=== PATIENT | female | born 1970 | race Caucasian/White ===

== ENCOUNTER 2019-04-08 19:35 | Emergency (ER) | payer MEDICARE, MEDICAID ==
[~2019-04-08] VITALS: Ht 154.9 cm; Wt 99.8 kg
[2019-04-08] MEDS ORDERED: OLANZapine 10 MG TAB PO ONE (22:15)
[2019-04-08] MEDS ORDERED: LOSARTAN 25 MG TAB PO ONE (22:15)
[2019-04-08] MEDS ORDERED: PRAMIPEXOLE (MIRAPEX) 0.125 MG TAB PO ONE (22:15)
[2019-04-08] MEDS ORDERED: metFORMIN (GLUCOPHAGE) 500 MG TAB PO ONE (22:15)
[2019-04-08] MEDS ORDERED: raNITIdine SYRUP 150 MG/10 ML UDC GT ONE (22:16)
[2019-04-09 03:46] VITALS: BP 159/97
--- NOTE | 2019-04-10 07:05 | ECGEPIP ---
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
== END 2019-04-09 03:51 | disposition short-term general hospital (02) ==
LOC: M ED 19:35
DX: F29 Unspecified psychosis not due to a substance or known physiological condition (principal); F32.9 Major depressive disorder, single episode, unspecified; Z91.018 Allergy to other foods; E78.00 Pure hypercholesterolemia, unspecified; G47.30 Sleep apnea, unspecified; H90.5 Unspecified sensorineural hearing loss; E28.2 Polycystic ovarian syndrome; E11.9 Type 2 diabetes mellitus without complications; R45.851 Suicidal ideations; R45.850 Homicidal ideations; Z79.899 Other long term (current) drug therapy

== ENCOUNTER 2019-04-20 12:16 | Inpatient (IN) | payer MEDICARE, MEDICAID ==
[~2019-04-20] VITALS: Ht 154.9 cm; Wt 109.0 kg
[2019-04-20 13:06] LABS: HEMATOCRIT 37.5 % (36.0-47.0); HEMOGLOBIN 12.8 g/dl (12.0-15.5); MEAN CORPUSCULAR HGB CONC 34.1 g/dl (32.0-36.5); MEAN CORPUSCULAR VOLUME 90.8 fl (80.0-96.0); PLATELET COUNT, AUTOMATED 250 10^3/uL (150-450); RED BLOOD COUNT 4.13 10^6/uL (4.00-5.40); WHITE BLOOD COUNT 8.2 10^3/uL (4.0-10.0)
[2019-04-20 13:28] LABS: AMPHETAMINES LEVEL URINE NEGATIVE (NEGATIVE); BARBITURATES URINE NEGATIVE (NEGATIVE); BENZODIAZEPINES URINE NEGATIVE (NEGATIVE); CANNABINOIDS URINE NEGATIVE (NEGATIVE); COCAINE METABOLITE URINE NEGATIVE (NEGATIVE); METHADONE URINE NEGATIVE (NEGATIVE); OPIATES URINE NEGATIVE (NEGATIVE); PHENCYCLIDINE URINE NEGATIVE (NEGATIVE)
[2019-04-20 13:34] LABS: HCG, SERUM QUALITATIVE NEGATIVE (NEGATIVE)
[2019-04-20] MEDS ORDERED: OLAN15TA PO (13:36)
[2019-04-20] MEDS ORDERED: METF500T13 PO (13:36)
[2019-04-20] MEDS ORDERED: PRAMIPEXOLE (13:36)
[2019-04-20] MEDS ORDERED: RANI150T14 PO (13:36)
[2019-04-20] MEDS ORDERED: ALL10TAB29 PO (13:36)
[2019-04-20] MEDS ORDERED: SERT-155 PO (13:36)
[2019-04-20] MEDS ORDERED: LOSA25TA14 PO (13:36)
[2019-04-20 13:47] LABS: ACETAMINOPHEN LEVEL < 2.0 UG/ML (10.0-30.0); ALBUMIN 3.9 GM/DL (3.2-5.2); ALT/SGPT 69 U/L (12-78); BILIRUBIN,DIRECT < 0.1 MG/DL (0.0-0.2); BILIRUBIN,TOTAL 0.3 MG/DL (0.2-1.0); BLOOD UREA NITROGEN 12 MG/DL (7-18); CALCIUM LEVEL 9.5 MG/DL (8.5-10.1); CARBON DIOXIDE LEVEL 27 MEQ/L (21-32); CHLORIDE LEVEL 104 MEQ/L (98-107); CREATININE FOR GFR 0.91 MG/DL (0.55-1.30); ETHYL ALCOHOL (ETHANOL) < 0.003 % (0.000-0.010); GLOMERULAR FILTRATION RATE > 60.0 (>58); GLUCOSE, FASTING 179 MG/DL (70-100); POTASSIUM SERUM 3.8 MEQ/L (3.5-5.1); SALICYLATE LEVEL < 1.7 MG/DL (5.0-30.0); SODIUM LEVEL 141 MEQ/L (136-145); TOTAL PROTEIN 7.6 GM/DL (6.4-8.2)
[2019-04-20] MEDS ORDERED: HALOPERIDOL 5 MG TAB PO PRN (16:15)
[2019-04-20] MEDS ORDERED: MOM 30ML SUSPENSION UDC PO PRN (16:15)
[2019-04-20] MEDS ORDERED: MIRA0.254 PO (17:03)
[2019-04-20] MEDS ORDERED: TRAZ-252 PO (17:03)
[2019-04-20 18:27] VITALS: BP 168/88
[2019-04-20] MEDS: ACETAMINOPHEN TAB 650MG DOSE (2X325MG) PO PRN (20:52)
[2019-04-20] MEDS: traZODone 50 MG TAB PO PRN (20:52)
[2019-04-21 06:30] VITALS: BP 165/90
[2019-04-21] MEDS: NICOTINE 7 MG/24 HR TRANSDERMAL TD SCH (08:23)
[2019-04-21] MEDS: SERTRALINE HCL 50 MG TAB PO SCH (14:45)
[2019-04-21] MEDS: LOSARTAN 25 MG TAB PO SCH (15:26)
[2019-04-21 16:15] VITALS: BP 160/92
[2019-04-21] MEDS ORDERED: SENOKOT S TAB PO PRN (21:00)
[2019-04-21] MEDS: PRAMIPEXOLE (MIRAPEX) 0.125 MG TAB PO SCH (21:22)
[2019-04-21] MEDS: CETIRIZINE (ZyrTEC) 10 MG TAB PO SCH (21:24)
[2019-04-21] MEDS: amLODIPine 5 MG TAB PO SCH (21:24)
[2019-04-21] MEDS: OLANZapine 5 MG TAB PO SCH (21:24)
[2019-04-21] MEDS: metFORMIN (GLUCOPHAGE) 1000 MG TABLET PO SCH (21:24)
--- NOTE | 2019-04-21 22:23 | HPE ---
DATE OF ADMISSION: 04/21/2019 CHIEF COMPLAINT: Unspecified psychosis. HISTORY OF PRESENT ILLNESS: This is a 49-year-old female with a history of hypertension, diabetes, hypercholesterolemia, chronic constipation, prior history of tonsillectomy, and right ankle injury with no prior followup, admitted to inpatient mental health unit for unspecified psychosis. Hospital service was consulted to manage chronic medical problems. Patient complains of right ankle pain when she ambulates. She denies any current falls. Denies fevers, chills. Denies any erythema at the site. No recent trauma. Diabetes had been previously treated with metformin. She currently denies any polyphagia, polyuria, weight loss. Despite pressure 148/160, patient denies any headaches, changes in vision, chest pain, pressure, tightens, palpitations, lightheadedness, or dizziness. She does complain of constipation but denies any nausea, vomiting, or abdominal pain. PAST MEDICAL HISTORY: 1. Hypertension. 2. Diabetes. 3. Hypercholesterolemia. 4. Morbid obesity, body mass index (BMI) of 45. 5. Metabolic syndrome. 6. Right ankle injury. 7. Psychosis. 8. Allergic rhinitis. PAST SURGICAL HISTORY: Tonsillectomy at the age of 89 years old. HOSPITAL MEDICATIONS: Zyrtec, metformin, Zyprexa, Mirapex, Cozaar, Zoloft, nicotine patch, Ativan, Haldol, trazodone, acetaminophen, milk of magnesia, Mylanta. ALLERGIES: Grass, pollen, and Coca Cola, causing rash. FAMILY HISTORY: Mother with hypertension, father with coronary artery disease. 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 Currently unemployed. Smokes one to two cigarettes a day. Has alcohol binges with her friends. Usually drinks five to six orange beer and lockhart colada but has not had any recently. Sometimes drinks five glasses of wine at one point. Denies any recreational drug use. REVIEW OF SYSTEMS: Per history of present illness (HPI). A 12-point system otherwise negative. PHYSICAL EXAMINATION: VITAL SIGNS: Temperature 98.4, pulse 90, respiratory rate 18, blood pressure 160/92, 98% on room air. GENERAL: Patient looks her stated age. She appears disheveled. No jugular venous distention (JVD) or thyromegaly. Pupils round, reactive. Extraocular muscles are intact. Anicteric sclerae. No jaundice. No cervical lymphadenopathy or thyromegaly. Moist mucous membranes. LUNGS: Clear to auscultation. No wheezes, rales, or rhonchi. ABDOMEN: Obese, soft, nontender, nondistended. Positive bowel sounds times four quadrants. No rebound, guarding, or hepatosplenomegaly. EXTREMITIES: Patient has no pitting edema, cyanosis, clubbing in the bilateral lower extremities. She has full flexion and extension, lateral and external rotation of bilateral ankles. LABORATORY DATA: On April 20, CBC, CMP, TSH, and HCG have been reviewed. ASSESSMENT AND PLAN: This is a 49-year-old female with a history of hypertension, diabetes, metabolic syndrome, hypercholesterolemia, chronic constipation, right ankle injury. IMPRESSION: 1. Unspecified psychosis. Currently admitted to inpatient mental health unit. Managed by primary team, psychiatrist. 2. Right ankle pain. Will obtain x-ray of the right ankle. There is no obvious swelling or tenderness on examination and no gait abnormalities. 3. Hypertension. Patient has been resumed on her home dose of losartan due to uncontrolled at 140-160. Norvasc has been added, 5 mg at bedtime. 4. Type 2 diabetes. Currently on metformin. Will check A1c. Consistent-carbohydrate diet. 5. Active tobacco smoking. Currently on nicotine patch. Tobacco cessation counseling has bene provided. 6. Depression, on chronic Zoloft. 7. Allergic rhinitis, on Zyrtec. 8. Chronic constipation, on bowel regimen. MTDD
[2019-04-22 06:41] VITALS: BP 129/72
[2019-04-22 06:57] LABS: HEMOGLOBIN A1c 6.2 %
--- NOTE | 2019-04-22 07:30 | MHHPE ---
DATE OF ADMISSION: 04/20/2019 CHIEF COMPLAINT: Feels stressed. SUBJECTIVE: She is 49 years old. She is admitted here after being discharged from [facility] just recently, time frame is unclear, she says that this was about a week or so ago, and she thinks she stayed there for about a week, I do not have access to those records, and that she was further disturbed when she was told about her diagnosis when she was there, says was told that she has schizophrenia, and says has been hearing voices, and some of them have been asking her to kill herself, says there is more than one voice and sometimes they talk to each other about her. She says she is further disturbed as she has a neighbor where she stays in [place], she says he is a sex offender, and that he has been disturbing her, again details unclear. She says she recently made a phone call to someone, and that has led her boyfriend in [place], [place] to fdc. Says he is mad at her now. She also spoke of not being treated well at [facility], and for being admonished for hugging another patient there, and for taking God's name. Says her mother lives in [place], and that they are in touch with each other, but she is not sure if her mother knows she is here. Says has been taking her medicines, and gets them regularly. According to the chart, is on olanzapine at 15 mg at night, Zoloft 50 mg daily, trazodone 150 mg at bedtime, this is in addition to ranitidine, cetirizine, losartan and metformin, Mirapex. Says has felt suicidal, and that she feels disturbed by this, she took pains to point out that she does not want to go to [facility]. Says attends [facility]. PAST PSYCHIATRIC HISTORY: As indicated above. Has had previous hospitalizations, including here, and most recently she was at [facility] there. SUBSTANCE ABUSE HISTORY: None significantly. PAST MEDICAL HISTORY: Says has diabetes and hypertension, is treated for that. MEDICATIONS: Please see above. SOCIAL HISTORY: Stays in [place], on her own, says has a mother in [place], other details are unknown at present. She did indicate she has a boyfriend in [place], [place], and is upset that he is in fdc. Again, details unknown. MENTAL STATUS EXAM: She is fairly neat. She is cooperative. She is overweight. She is seen in the presence of staff. She is not agitated, displays no psychomotor retardation. Affect is restricted in range, she is somewhat tangential at times, and generally directable. Has suicidal thoughts, vague on plans. Does not appear internally preoccupied at present. Denies any thoughts of harming anyone else at present either. Her cognition is grossly intact. She is alert and oriented. Judgment and insight are compromised. ASSESSMENT: Schizophrenia. Recent hospitalization. Poor social support. Has auditory hallucinations, command hallucinations, and also seems to have some difficulties in her thought processes, tangential at times. PLAN: She is admitted to the inpatient psychiatry unit, placed on relevant precautions, will look at obtaining collateral information, including past records. She will be resumed on her medicines, and changes will be made to the regimen should it be necessary. She will be involved in individual, group and milieu therapy. She will see the department medicine for consult if necessary. She will be discharged with followup once she is stable. I anticipate a 5 to 7 days stay. The assessment took 30 minutes. VITAL SIGNS: Blood pressure 165/90, pulse 88, temperature 98. LABORATORY VALUES, INVESTIGATIONS: Complete blood count within normal limits. Metabolic profile essentially within normal limits except for AST at 44, glucose 179. Toxicology is essentially negative.
[2019-04-22] MEDS: metFORMIN (GLUCOPHAGE) 1000 MG TABLET PO SCH ×2 (08:24→20:21)
[2019-04-22] MEDS: SERTRALINE HCL 50 MG TAB PO SCH (08:25)
[2019-04-22] MEDS: PRAMIPEXOLE (MIRAPEX) 0.125 MG TAB PO SCH ×2 (08:25→20:21)
[2019-04-22] MEDS: LOSARTAN 25 MG TAB PO SCH (08:25)
[2019-04-22] MEDS: NICOTINE 7 MG/24 HR TRANSDERMAL TD SCH (08:26)
--- NOTE | 2019-04-22 10:03 | REP ---
RIGHT ANKLE, FOUR VIEWS: Four views right ankle performed. No fracture or dislocation is seen. Ankle mortise is anatomic. There is mild soft tissue swelling. There is posterior and inferior calcaneal spurring. IMPRESSION: No fracture or dislocation. Calcaneal spurring. Mild soft tissue swelling. Electronically Signed by Fredi John MD 04/22/2019 05:58 P
[2019-04-22 16:03] VITALS: BP 132/66
--- NOTE | 2019-04-22 16:32 | MHIPN ---
DATE: 04/22/2019 CHIEF COMPLAINT: Feels upset. SUBJECTIVE: Is seen for followup in the presence of staff. Says has been upset, angry, and concerned about apparently a patient being intrusive on her, also suggested has had not much sleep. Appetite has been fair. MENTAL STATUS EXAMINATION: Fair hygiene. Cooperative. Mildly irritable. At times crying, reconstitutes herself, congruent affect. Denies any active suicidal thoughts or intents. Does not appear to be internally preoccupied, but says hears voices currently. Has possible delusions. Judgment and insight are compromised. ASSESSMENT: 1. Schizophrenia. PLAN: Continue olanzapine 15 mg at night, sertraline 50 mg a day. Encouraged to participate in activities on the unit. We will look at obtaining collateral information as well. VITAL SIGNS: Blood pressure 129/72, pulse 77, temperature 97.6. She will be seeing the psychiatrist assigned to her and the treatment team tomorrow.
[2019-04-22] MEDS: traZODone 50 MG TAB PO PRN (20:20)
[2019-04-22] MEDS: CETIRIZINE (ZyrTEC) 10 MG TAB PO SCH (20:20)
[2019-04-22] MEDS: OLANZapine 5 MG TAB PO SCH (20:20)
[2019-04-22] MEDS: FAMOTIDINE 20 MG TAB PO SCH (20:21)
[2019-04-22] MEDS: amLODIPine 5 MG TAB PO SCH (20:21)
[2019-04-23 06:24] VITALS: BP 154/77
[2019-04-23] MEDS: ACETAMINOPHEN TAB 650MG DOSE (2X325MG) PO PRN ×2 (07:14→20:16)
[2019-04-23] MEDS: LOSARTAN 25 MG TAB PO SCH (08:50)
[2019-04-23] MEDS: FAMOTIDINE 20 MG TAB PO SCH ×2 (08:50→20:15)
[2019-04-23] MEDS: SERTRALINE HCL 50 MG TAB PO SCH (08:50)
[2019-04-23] MEDS: metFORMIN (GLUCOPHAGE) 1000 MG TABLET PO SCH ×2 (08:50→20:14)
[2019-04-23] MEDS: PRAMIPEXOLE (MIRAPEX) 0.125 MG TAB PO SCH ×2 (08:51→20:14)
[2019-04-23] MEDS: NICOTINE 7 MG/24 HR TRANSDERMAL TD SCH (08:51)
--- NOTE | 2019-04-23 10:11 | MHIPNPDOC ---
[facility] Progress Note Progress Note DATE OF SERVICE: 04/23/19 HISTORY: She is 49 years old. She is admitted here after being discharged from [facility] just recently, time frame is unclear, she says that this w as about a week or so ago, and she thinks she stayed there for about a week, I do not have access to those records, and that she was further disturbed when she was told about her diagnosis when she was there, says was told that she has schizophrenia, and says has been hearing voices, and some of them have been asking her to kill herself, says there is more than one voice and sometimes they talk to each other about her. She says she is further disturbed as she has a neighbor where she stays in [place], she says he is a sex offender, and that he has been disturbing her, again details unclear. She says she recently made a phone call to someone, and that has led her boyfriend in [place], [place] to penitentiary. Says he is mad at her now. She also spoke of not being treated well at [facility], and for being admonished for hugging another patient there, and for taking God's name. Says her mother lives in [place], and that they are in touch with each other, but she is not sure if her mother knows she is he re. Says has been taking her medicines, and gets them regularly. According to the chart, is on olanzapine at 15 mg at night, Zoloft 50 mg daily, trazodone 150 mg at bedtime, this is in addition to ranitidine, cetirizine, losartan and metformin, Mirapex. Says has felt suicidal, and that she feels disturbed by this, she took pains to point out that she does not want to go to [facility]. Says attends [facility]. Is seen for followup in the presence of staff. Says has been upset, angry, and concerned about apparently a patient being intrusive on her, also suggested has had not much sleep. VITAL SIGNS: See below. NEW TEST RESULTS: see below. CURRENT MEDICATIONS: See below. MENTAL STATUS EXAMINATION: Pt currently sleeping, per staff up most of the night, and left sleeping. MSE per yesterday: General Appearance: unkempt, appears stated age, disheveled Build: overweight Demeanor: average Eye Contact: good Activity: anxious, mildly agitated Behavior: cooperative, agitated, restless Speech: rapid, normal volume Mood: anxious, depressed Mood "worse, bad" Affect: congruent, anxious, disorganized Thought Process: flight of ideas, loose associations, tangential Thought Content (Delusions): reports SI, AVH, denies HI, reports possible delusions regarding her neighbor being a sexual offender Thought Content (Other): ideas of reference, obsessional Thought Content (Aggressive): none reported Perception (Hallucinations): reports hearing multiple voices telling her to kill herself, and having nightmare-like visual hallucinations. Perception (Other): none reported Cognition (Impairment of): none reported Cognition(Intelligence Est.): average Oriented: Awake, Alert, Oriented times three Insight: poor Judgment: poor Psychosis: Denies DIAGNOSES: 1. Schizophrenia ASSESSMENT: Patient seen today asleep in her room and left sleeping as per staff pt was up manic, most of the night and needs the sleep currently to improve her tonio. Pt started depakote yesterday and appears to be tolerating. Will change it to just nightly dosing to less day time fatigue. Appears to be stabilizing the pt's mood. Per Yesterday's note "She reports being "pissed off" regarding another patient jessie was previously nice to her but upset her this morning. She reports she hasn't been able to sleep well here because she needs the radio playing or some noise and she hasn't had that here. She continues to discuss her concerns with her neighbor who she reports is a sex offender. She is upset because this kelsey is free and her brother is in senior care. She reports still hearing voices, and is frustrated with another patient here trying to cause a fight with her and following her around. When she began to elaborate on the voices, she got side-tracked and changed the subject a few times. She reports visual hallucinations as well, and states these are nightmares. I asked her if these occur while she is asleep or while she is awake and she reports both. She reports hearing multiple voices telling her to "kill myself." She doesn't notice a difference with the medications and doesn't feel like she has noticed any improvement. She reports the nightmares occur more lately because her brother is in senior care and she isn't able to talk to him or get a hold of him, and the holidays are coming up. She is also upset because she misses her kids, and she isn't allowed to see her grandchildren. She is worried her relationship with her boyfriend isn't going to last. She reports, "I'm the only one who treated him goodly." She reports she needs a brace because her ankle is bothering her." She reports SI/AVH, denies HI. She feels safe here. MANAGEMENT PLAN: change depakote to 1000mg qhs for morning sedation olanzapine 15 mg at night sertraline 50 mg a day. depakote to 1000mg qhs Invega 3mg bid TIME SPENT: 30 minutes. Vital Signs Vital Signs Date Time Temp Pulse Resp B/P (MAP) Pulse Ox O2 Delivery O2 Flow Rate FiO2 04/23/19 08:50 135/63 04/23/19 06:24 97.6 58 18 04/20/19 18:27 98 04/20/19 17:56 Room Air Current Medications Current Medications Medications (Trade) Dose Ordered Sig/Breezy Route PRN Reason Start Time Stop Time Status Last Admin Dose Admin Acetaminophen (Tylenol Tab) 650 mg Q6HP PRN PO HEADACHE or DISCOMFORT 04/20/19 16:15 04/23/19 07:14 Al Hydrox/Mg Hydrox/Simethicone (Mylanta) 30 ml Q4HP PRN PO HEARTBURN/INDIGESTION 04/20/19 16:15 Amlodipine Besylate (Norvasc) 5 mg QHS PO 04/21/19 21:00 04/22/19 20:21 Cetirizine HCl (ZyrTEC) 10 mg QHS PO 04/21/19 21:00 04/22/19 20:20 Famotidine (Pepcid) 20 mg BID PO 04/22/19 21:00 04/23/19 08:50 Haloperidol (Haldol) 2 mg Q4HP PRN PO ANXIETY/AGITATION 04/20/19 16:15 Home Med (Med Rec Complete!) ASDIRECTED XX 04/20/19 17:15 04/20/19 17:15 DC Lorazepam (Ativan) 2 mg Q4HP PRN PO ANXIETY/AGITATION 04/20/19 16:15 Losartan Potassium (Cozaar) 25 mg DAILY PO 04/21/19 15:00 04/23/19 08:50 Magnesium Hydroxide (Milk Of Magnesia) 30 ml DAILYPRN PRN PO CONSTIPATION 04/20/19 16:15 04/20/19 21:49 Metformin HCl (Glucophage) 1,000 mg BID PO 04/21/19 21:00 04/23/19 08:50 Nicotine (Nicoderm Cq 7 Mg) 1 patch DAILY TD 04/21/19 09:00 04/23/19 08:51 Olanzapine (ZyPREXA) 15 mg QHS PO 04/21/19 21:00 04/22/19 20:20 Pramipexole Dihydrochloride (Mirapex) 0.125 mg BID PO 04/21/19 21:00 04/23/19 08:51 Senna/Docusate Sodium (Senokot S) 2 tab BIDP PRN PO CONSTIPATION 04/21/19 21:00 04/22/19 20:23 Sertraline HCl (Zoloft) 50 mg DAILY PO 04/21/19 14:00 04/23/19 08:50 Trazodone HCl (Desyrel) 50 mg QHSP PRN PO INSOMNIA 04/20/19 16:15 04/22/19 20:20 Allergies Coded Allergies: Cola Drinks (Verified Allergy, Intermediate, CARRIES EPI-PEN, DARK COLA PRODUCTS, 05/16/07) ACE CARVALHO DO Apr 23, 2019 10:11 am
[2019-04-23] MEDS ORDERED: DIVALPROEX 500 MG TAB PO ONE (12:00)
[2019-04-23] MEDS ORDERED: PALIPERIDONE 3 MG ER TAB (INVEGA) PO ONE (12:00)
[2019-04-23 15:31] VITALS: BP 137/65
[2019-04-23] MEDS: PALIPERIDONE 3 MG ER TAB (INVEGA) PO SCH (20:14)
[2019-04-23] MEDS: OLANZapine 5 MG TAB PO SCH (20:14)
[2019-04-23] MEDS: amLODIPine 5 MG TAB PO SCH (20:15)
[2019-04-23] MEDS: CETIRIZINE (ZyrTEC) 10 MG TAB PO SCH (20:15)
[2019-04-23] MEDS: DIVALPROEX 500 MG TAB PO SCH (20:15)
[2019-04-23] MEDS: traZODone 50 MG TAB PO PRN (21:15)
[2019-04-23] MEDS: LORazepam 1 MG TAB PO PRN (23:01)
[2019-04-24 06:39] VITALS: BP 125/69
[2019-04-24] MEDS: NICOTINE 7 MG/24 HR TRANSDERMAL TD SCH (08:26)
[2019-04-24] MEDS: PALIPERIDONE 3 MG ER TAB (INVEGA) PO SCH ×2 (08:26→20:36)
[2019-04-24] MEDS: metFORMIN (GLUCOPHAGE) 1000 MG TABLET PO SCH ×2 (08:27→20:35)
[2019-04-24] MEDS: SERTRALINE HCL 50 MG TAB PO SCH (08:27)
[2019-04-24] MEDS: DIVALPROEX 500 MG TAB PO SCH ×2 (08:27→20:36)
[2019-04-24] MEDS: FAMOTIDINE 20 MG TAB PO SCH ×2 (08:27→20:35)
[2019-04-24] MEDS: LOSARTAN 25 MG TAB PO SCH (08:27)
[2019-04-24] MEDS: PRAMIPEXOLE (MIRAPEX) 0.125 MG TAB PO SCH ×2 (08:27→20:35)
[2019-04-24 16:03] VITALS: BP 157/70
[2019-04-24] MEDS: CETIRIZINE (ZyrTEC) 10 MG TAB PO SCH (20:35)
[2019-04-24] MEDS: amLODIPine 5 MG TAB PO SCH (20:36)
[2019-04-24] MEDS: OLANZapine 5 MG TAB PO SCH (20:36)
[2019-04-24] MEDS: traZODone 50 MG TAB PO PRN (21:05)
[2019-04-25 06:00] VITALS: BP 147/78
[2019-04-25] MEDS: FAMOTIDINE 20 MG TAB PO SCH ×2 (08:22→21:01)
[2019-04-25] MEDS: PALIPERIDONE 3 MG ER TAB (INVEGA) PO SCH ×2 (08:22→21:03)
[2019-04-25] MEDS: metFORMIN (GLUCOPHAGE) 1000 MG TABLET PO SCH ×2 (08:22→21:03)
[2019-04-25] MEDS: SERTRALINE HCL 50 MG TAB PO SCH (08:22)
[2019-04-25] MEDS: PRAMIPEXOLE (MIRAPEX) 0.125 MG TAB PO SCH ×2 (08:23→21:00)
[2019-04-25] MEDS: LOSARTAN 25 MG TAB PO SCH (08:23)
[2019-04-25] MEDS: NICOTINE 7 MG/24 HR TRANSDERMAL TD SCH (08:23)
[2019-04-25] MEDS: ACETAMINOPHEN TAB 650MG DOSE (2X325MG) PO PRN (14:21)
[2019-04-25] MEDS: MAALOX 30 ML SUSP *UDC PO PRN (15:30)
[2019-04-25] MEDS: LORazepam 1 MG TAB PO PRN (15:33)
[2019-04-25 15:36] VITALS: BP 144/86
[2019-04-25] MEDS: CETIRIZINE (ZyrTEC) 10 MG TAB PO SCH (21:00)
[2019-04-25] MEDS: OLANZapine 5 MG TAB PO SCH (21:01)
[2019-04-25] MEDS: amLODIPine 5 MG TAB PO SCH (21:02)
[2019-04-25] MEDS: DIVALPROEX 500 MG TAB PO SCH (21:03)
[2019-04-25] MEDS: traZODone 50 MG TAB PO PRN (21:51)
[2019-04-26 06:33] VITALS: BP 126/84
[2019-04-26] MEDS: SERTRALINE HCL 50 MG TAB PO SCH (08:41)
[2019-04-26] MEDS: metFORMIN (GLUCOPHAGE) 1000 MG TABLET PO SCH ×2 (08:41→20:33)
[2019-04-26] MEDS: PALIPERIDONE 3 MG ER TAB (INVEGA) PO SCH ×2 (08:41→20:33)
[2019-04-26] MEDS: FAMOTIDINE 20 MG TAB PO SCH ×2 (08:41→20:33)
[2019-04-26] MEDS: LOSARTAN 25 MG TAB PO SCH (08:42)
[2019-04-26] MEDS: NICOTINE 7 MG/24 HR TRANSDERMAL TD SCH (08:42)
[2019-04-26] MEDS: PRAMIPEXOLE (MIRAPEX) 0.125 MG TAB PO SCH ×2 (08:42→20:33)
--- NOTE | 2019-04-26 10:16 | MHIPNPDOC ---
[facility] Progress Note Progress Note DATE OF SERVICE: 04/26/19 HISTORY: She is 49 years old. She is admitted here after being discharged from [facility] just recently, time frame is unclear, she says that this w as about a week or so ago, and she thinks she stayed there for about a week, I do not have access to those records, and that she was further disturbed when she was told about her diagnosis when she was there, says was told that she has schizophrenia, and says has been hearing voices, and some of them have been asking her to kill herself, says there is more than one voice and sometimes they talk to each other about her. She says she is further disturbed as she has a neighbor where she stays in [place], she says he is a sex offender, and that he has been disturbing her, again details unclear. She says she recently made a phone call to someone, and that has led her boyfriend in [place], [place] to chcf. Says he is mad at her now. She also spoke of not being treated well at [facility], and for being admonished for hugging another patient there, and for taking God's name. Says her mother lives in [place], and that they are in touch with each other, but she is not sure if her mother knows she is he re. Says has been taking her medicines, and gets them regularly. According to the chart, is on olanzapine at 15 mg at night, Zoloft 50 mg daily, trazodone 150 mg at bedtime, this is in addition to ranitidine, cetirizine, losartan and metformin, Mirapex. Says has felt suicidal, and that she feels disturbed by this, she took pains to point out that she does not want to go to [facility]. Says attends [facility]. Is seen for followup in the presence of staff. Says has been upset, angry, and concerned about apparently a patient being intrusive on her, also suggested has had not much sleep. VITAL SIGNS: See below. NEW TEST RESULTS: see below. CURRENT MEDICATIONS: See below. MENTAL STATUS EXAMINATION: General Appearance: unkempt, appears stated age, disheveled Build: overweight Demeanor: mistrustful, figety Eye Contact: fair Activity: anxious, mildly agitated Behavior: cooperative, agitated, restless Speech: rapid, normal volume, spontaneous Mood: anxious, depressed Mood "not great" Affect: congruent, anxious, disorganized Thought Process: flight of ideas, loose associations, tangential, incoherent Thought Content (Delusions): reports SI, denies HI/AVH, paranoia, delusions (fears people are out to get her/kill her, people from [place]) Thought Content (Other): ideas of reference, obsessional, appears paranoid Thought Content (Aggressive): none reported Perception (Hallucinations): none reported Perception (Other): none reported Cognition (Impairment of): none reported Cognition(Intelligence Est.): average Oriented: Awake, Alert, Oriented times three Insight: poor Judgment: poor Psychosis: Denies DIAGNOSES: 1. Schizophrenia r/o schizoaffective d/o vs. Bipolar type 1 mre manic with psychosis ASSESSMENT: Patient seen today and reports she was feeling good until some kelsey on the floor said something to her he shouldn't have said. She is upset because she lost phone numbers for her friends and family and now she can't contact them. She is angry with this man on the floor who thinks she is in love with him but shes not. She is also upset because someone on the floor wrote a note to her saying she was cursed. She did give this note to the staff. She states "it hurt my feelings deeply." She has gone to some group sessions and sometimes finds them helpful, but was upset with one of the group leaders who she reports wouldn't let her talk and wouldn't answer her questions. She continues to discuss her frustrations with the male patient on the floor who makes her uncomfortable and wont leave her alone because he thinks they are . She reports she is no longer having any hallucinations and does feel like the m edications she is on are helping her. She denies any side effects from the medications. She still endorses SI, stating she always has these thoughts. She also reports a loss of appetite. She reports her sleep has been "good." She reports SI, denies HI/AVH. She reports she does not feel safe here, because she feels like someone is after her, stating "if they could do it to anil walker, they could do it to me too." She further explains fears of specific people, all of whom are in [place]. When I ask her again if she feels safe here knowing the people she is afraid of are not here, she said "yes." She continues to change the subject of conversation quite frequently, and is difficult to follow. MANAGEMENT PLAN: consider change to Invega 3mg bid for psychosis, Depakote 500mg bid for tonio 1. olanzapine 15 mg at night 2. sertraline 50 mg a day. TIME SPENT: 30 minutes. Vital Signs Vital Signs Date Time Temp Pulse Resp B/P (MAP) Pulse Ox O2 Delivery O2 Flow Rate FiO2 04/26/19 08:42 123/69 04/26/19 06:33 97.7 87 18 04/25/19 09:54 Room Air 04/20/19 18:27 98 Laboratory Data 24H Labs Laboratory Tests 2 04/26/19 06:10: Bedside Glucose (Misc Panel) 100 Current Medications Current Medications Medications (Trade) Dose Ordered Sig/Breezy Route PRN Reason Start Time Stop Time Status Last Admin Dose Admin Acetaminophen (Tylenol Tab) 650 mg Q6HP PRN PO HEADACHE or DISCOMFORT 04/20/19 16:15 04/25/19 14:21 Al Hydrox/Mg Hydrox/Simethicone (Mylanta) 30 ml Q4HP PRN PO HEARTBURN/INDIGESTION 04/20/19 16:15 04/25/19 15:30 Amlodipine Besylate (Norvasc) 5 mg QHS PO 04/21/19 21:00 04/25/19 21:02 Cetirizine HCl (ZyrTEC) 10 mg QHS PO 04/21/19 21:00 04/25/19 21:00 Divalproex Sodium (Depakote) 500 mg BID PO 04/23/19 21:00 04/24/19 09:46 DC 04/24/19 08:27 Divalproex Sodium (Depakote) 1,000 mg QHS PO 04/24/19 21:00 04/25/19 21:03 Famotidine (Pepcid) 20 mg BID PO 04/22/19 21:00 04/26/19 08:41 Haloperidol (Haldol) 2 mg Q4HP PRN PO ANXIETY/AGITATION 04/20/19 16:15 04/24/19 02:34 DC Haloperidol (Haldol) 2 mg Q4HP PRN PO ANXIETY/AGITATION 04/24/19 02:34 Home Med (Med Rec Complete!) ASDIRECTED XX 04/20/19 17:15 04/20/19 17:15 DC Lorazepam (Ativan) 2 mg Q4HP PRN PO ANXIETY/AGITATION 04/20/19 16:15 04/25/19 15:33 Losartan Potassium (Cozaar) 25 mg DAILY PO 04/21/19 15:00 04/26/19 08:42 Magnesium Hydroxide (Milk Of Magnesia) 30 ml DAILYPRN PRN PO CONSTIPATION 04/20/19 16:15 04/20/19 21:49 Metformin HCl (Glucophage) 1,000 mg BID PO 04/21/19 21:00 04/26/19 08:41 Nicotine (Nicoderm Cq 7 Mg) 1 patch DAILY TD 04/21/19 09:00 04/26/19 08:42 Olanzapine (ZyPREXA) 15 mg QHS PO 04/21/19 21:00 04/25/19 21:01 Paliperidone (Invega) 3 mg QAM PO 04/24/19 09:00 04/26/19 08:41 Paliperidone (Invega) 3 mg QHS PO 04/23/19 21:00 04/25/19 21:03 Pramipexole Dihydrochloride (Mirapex) 0.125 mg BID PO 04/21/19 21:00 04/26/19 08:42 Senna/Docusate Sodium (Senokot S) 2 tab BIDP PRN PO CONSTIPATION 04/21/19 21:00 04/22/19 20:23 Sertraline HCl (Zoloft) 50 mg DAILY PO 04/21/19 14:00 04/26/19 08:41 Trazodone HCl (Desyrel) 50 mg QHSP PRN PO INSOMNIA 04/20/19 16:15 04/25/19 21:51 Allergies Coded Allergies: Cola Drinks (Verified Allergy, Intermediate, CARRIES EPI-PEN, DARK COLA PRODUCTS, 05/16/07) ACE CARVALHO DO Apr 26, 2019 10:16
[2019-04-26 18:49] VITALS: BP 147/74
[2019-04-26] MEDS: OLANZapine 5 MG TAB PO SCH (20:33)
[2019-04-26] MEDS: amLODIPine 5 MG TAB PO SCH (20:33)
[2019-04-26] MEDS: CETIRIZINE (ZyrTEC) 10 MG TAB PO SCH (20:33)
[2019-04-26] MEDS: DIVALPROEX 500 MG TAB PO SCH (20:34)
[2019-04-26] MEDS: ACETAMINOPHEN TAB 650MG DOSE (2X325MG) PO PRN (20:34)
[2019-04-26] MEDS: traZODone 50 MG TAB PO PRN (20:38)
[2019-04-27] MEDS: HALOPERIDOL 2 MG TAB PO PRN (01:05)
[2019-04-27] MEDS: LORazepam 1 MG TAB PO PRN (03:01)
[2019-04-27 06:04] VITALS: BP 144/81
--- NOTE | 2019-04-27 09:59 | MHIPNPDOC ---
[facility] Progress Note Progress Note DATE OF SERVICE: 04/27/19 HISTORY: She is 49 years old. She is admitted here after being discharged from [facility] just recently, time frame is unclear, she says that this was about a week or so ago, and she thinks she stayed there for about a week, I do not have access to those records, and that she was further disturbed when she was told about her diagnosis when she was there, says was told that she has schizophrenia, and says has been hearing voices, and some of them have been asking her to kill herself, says there is more than one voice and sometimes they talk to each other about her. She says she is further disturbed as she has a neighbor where she stays in [place], she says he is a sex offender, and that he has been disturbing her, again details unclear. She says she recently made a phone call to someone, and that has led her boyfriend in [place], [place] to halfway. Says he is mad at her now. She also spoke of not being treated well at [facility], and for being admonished for hugging another patient there, and for taking God's name. Says her mother lives in [place], and that they are in touch with each other, but she is not sure if her mother knows she is h ere. Says has been taking her medicines, and gets them regularly. According to the chart, is on olanzapine at 15 mg at night, Zoloft 50 mg daily, trazodone 150 mg at bedtime, this is in addition to ranitidine, cetirizine, losartan and metformin, Mirapex. Says has felt suicidal, and that she feels disturbed by this, she took pains to point out that she does not want to go to [facility]. Says attends [facility]. Is seen for followup in the presence of staff. Says has been upset, angry, and concerned about apparently a patient being intrusive on her, also suggested has had not much sleep. VITAL SIGNS: See below. NEW TEST RESULTS: see below. CURRENT MEDICATIONS: See below. MENTAL STATUS EXAMINATION: General Appearance: unkempt, appears stated age, disheveled Build: overweight Demeanor: mistrustful, fidgety Eye Contact: fair Activity: anxious, mildly agitated Behavior: cooperative, agitated, restless Speech: rapid, normal volume, spontaneous Mood: anxious, depressed, very irritable Mood "annoyed" Affect: congruent, anxious, very irritable Thought Process: flight of ideas, loose associations, tangential, incoherent Thought Content (Delusions): reports SI, denies HI/AVH, paranoia, delusions (believes a woman is here "try to take my man... she's not taking my man!") Thought Content (Other): ideas of reference, obsessional, appears paranoid Thought Content (Aggressive): none reported Perception (Hallucinations): none reported Perception (Other): none reported Cognition (Impairment of): none reported Cognition(Intelligence Est.): average Oriented: Awake, Alert, Oriented times three Insight: poor Judgment: poor Psychosis: Denies DIAGNOSES: 1. Schizophrenia r/o schizoaffective d/o vs. Bipolar type 1 mre manic with psychosis ASSESSMENT: Patient seen today and she's not doing well b/c she didn't sleep here and that there's a pt here "Savi" that she doesn't like, fears wants to be her up and "is trying to take my man... she's not taking my man." States she unsure though if the pt "Savi" that's here is the one she thinks it is but looks like the one she knows. Pt encouraged to stay away from pt and "Savi" pt is unlikely to be one that she knows. Pt seems to have a problem with a different pt on the unit daily. Yesterday is was the pt "Artemio." She is paranoid, slightly agitated and irritable, labile, and continues to appear in an irritable manic state, having erotic delusions that a surgical scheduler is her boyfriend and plans to move to [place], [place] to be with him and state a music career. She has gone to some group sessions and sometimes finds them helpful. She is compliant on her medication does feel like the medications she is on are helping her and that she's tolerating them well. She denies any side effects from the medications. She denies SI today. She also reports a improved appetite. She denies SI/HI, denies HI/AVH. She reports she does not feel safe here, due to paranoid delusion involving pt "Savi" on the unit. She further explains fears of specific people, all of whom are in [place]. She continues to be tangential in speech and has poor insight and judgement. MANAGEMENT PLAN: increase Invega to 6mg bid for psychosis, Depakote level 1. olanzapine 15 mg at night 2. sertraline 50 mg a day. 3. invega 6mg bid 4. depakote 500mg bid TIME SPENT: 30 minutes. Vital Signs Vital Signs Date Time Temp Pulse Resp B/P (MAP) Pulse Ox O2 Delivery O2 Flow Rate FiO2 04/27/19 06:04 98.0 92 20 144/81 (102) 04/26/19 11:13 Room Air Laboratory Data 24H Labs Laboratory Tests 2 04/27/19 06:07: Bedside Glucose (Misc Panel) 98 Current Medications Current Medications Medications (Trade) Dose Ordered Sig/Breezy Route PRN Reason Start Time Stop Time Status Last Admin Dose Admin Acetaminophen (Tylenol Tab) 650 mg Q6HP PRN PO HEADACHE or DISCOMFORT 04/20/19 16:15 04/26/19 20:34 Al Hydrox/Mg Hydrox/Simethicone (Mylanta) 30 ml Q4HP PRN PO HEARTBURN/INDIGESTION 04/20/19 16:15 04/25/19 15:30 Amlodipine Besylate (Norvasc) 5 mg QHS PO 04/21/19 21:00 04/26/19 20:33 Cetirizine HCl (ZyrTEC) 10 mg QHS PO 04/21/19 21:00 04/26/19 20:33 Divalproex Sodium (Depakote) 500 mg BID PO 04/23/19 21:00 04/24/19 09:46 DC 04/24/19 08:27 Divalproex Sodium (Depakote) 1,000 mg QHS PO 04/24/19 21:00 04/26/19 20:34 Famotidine (Pepcid) 20 mg BID PO 04/22/19 21:00 04/26/19 20:33 Haloperidol (Haldol) 2 mg Q4HP PRN PO ANXIETY/AGITATION 04/20/19 16:15 04/24/19 02:34 DC Haloperidol (Haldol) 2 mg Q4HP PRN PO ANXIETY/AGITATION 04/24/19 02:34 04/27/19 01:05 Home Med (Med Rec Complete!) ASDIRECTED XX 04/20/19 17:15 04/20/19 17:15 DC Lorazepam (Ativan) 2 mg Q4HP PRN PO ANXIETY/AGITATION 04/20/19 16:15 04/27/19 03:01 Losartan Potassium (Cozaar) 25 mg DAILY PO 04/21/19 15:00 04/26/19 08:42 Magnesium Hydroxide (Milk Of Magnesia) 30 ml DAILYPRN PRN PO CONSTIPATION 04/20/19 16:15 04/20/19 21:49 Metformin HCl (Glucophage) 1,000 mg BID PO 04/21/19 21:00 04/26/19 20:33 Nicotine (Nicoderm Cq 7 Mg) 1 patch DAILY TD 04/21/19 09:00 04/26/19 08:42 Olanzapine (ZyPREXA) 15 mg QHS PO 04/21/19 21:00 04/26/19 20:33 Paliperidone (Invega) 3 mg QAM PO 04/24/19 09:00 04/26/19 08:41 Paliperidone (Invega) 3 mg QHS PO 04/23/19 21:00 04/26/19 20:33 Pramipexole Dihydrochloride (Mirapex) 0.125 mg BID PO 04/21/19 21:00 04/26/19 20:33 Senna/Docusate Sodium (Senokot S) 2 tab BIDP PRN PO CONSTIPATION 04/21/19 21:00 04/22/19 20:23 Sertraline HCl (Zoloft) 50 mg DAILY PO 04/21/19 14:00 04/26/19 08:41 Trazodone HCl (Desyrel) 50 mg QHSP PRN PO INSOMNIA 04/20/19 16:15 04/26/19 20:38 Allergies Coded Allergies: Cola Drinks (Verified Allergy, Intermediate, CARRIES EPI-PEN, DARK COLA PRODUCTS, 05/16/07) ACE CARVALHO DO Apr 27, 2019 9:59 am
[2019-04-27] MEDS ORDERED: PALIPERIDONE 3 MG ER TAB (INVEGA) PO ONE (10:00)
[2019-04-27] MEDS: PRAMIPEXOLE (MIRAPEX) 0.125 MG TAB PO SCH ×2 (10:15→20:52)
[2019-04-27] MEDS: SERTRALINE HCL 50 MG TAB PO SCH (10:15)
[2019-04-27] MEDS: FAMOTIDINE 20 MG TAB PO SCH ×2 (10:15→20:52)
[2019-04-27] MEDS: metFORMIN (GLUCOPHAGE) 1000 MG TABLET PO SCH ×2 (10:15→20:52)
[2019-04-27] MEDS: LOSARTAN 25 MG TAB PO SCH (10:15)
[2019-04-27] MEDS: NICOTINE 7 MG/24 HR TRANSDERMAL TD SCH (10:16)
[2019-04-27 18:27] VITALS: BP 124/57
[2019-04-27] MEDS: PALIPERIDONE 6 MG ER TAB (INVEGA) PO SCH (20:52)
[2019-04-27] MEDS: amLODIPine 5 MG TAB PO SCH (20:52)
[2019-04-27] MEDS: CETIRIZINE (ZyrTEC) 10 MG TAB PO SCH (20:52)
[2019-04-27] MEDS: traZODone 50 MG TAB PO PRN (20:52)
[2019-04-27] MEDS: OLANZapine 5 MG TAB PO SCH (20:52)
[2019-04-27] MEDS: DIVALPROEX 500 MG TAB PO SCH (20:52)
[2019-04-27] MEDS: ACETAMINOPHEN TAB 650MG DOSE (2X325MG) PO PRN (20:54)
[2019-04-28 06:39] VITALS: BP 137/83
[2019-04-28] MEDS: PALIPERIDONE 6 MG ER TAB (INVEGA) PO SCH ×2 (08:20→20:08)
[2019-04-28] MEDS: SERTRALINE HCL 50 MG TAB PO SCH (08:20)
[2019-04-28] MEDS: FAMOTIDINE 20 MG TAB PO SCH ×2 (08:20→20:08)
[2019-04-28] MEDS: PRAMIPEXOLE (MIRAPEX) 0.125 MG TAB PO SCH ×2 (08:21→20:08)
[2019-04-28] MEDS: metFORMIN (GLUCOPHAGE) 1000 MG TABLET PO SCH ×2 (08:21→20:08)
[2019-04-28] MEDS: LOSARTAN 25 MG TAB PO SCH (08:21)
[2019-04-28] MEDS: NICOTINE 7 MG/24 HR TRANSDERMAL TD SCH (09:49)
[2019-04-28] MEDS: HALOPERIDOL 2 MG TAB PO PRN ×2 (10:15→19:41)
[2019-04-28 15:58] VITALS: BP 129/63
[2019-04-28] MEDS: ACETAMINOPHEN TAB 650MG DOSE (2X325MG) PO PRN (19:41)
[2019-04-28] MEDS: DIVALPROEX 500 MG TAB PO SCH (20:07)
[2019-04-28] MEDS: traZODone 50 MG TAB PO PRN (20:07)
[2019-04-28] MEDS: amLODIPine 5 MG TAB PO SCH (20:07)
[2019-04-28] MEDS: OLANZapine 5 MG TAB PO SCH (20:07)
[2019-04-28] MEDS: CETIRIZINE (ZyrTEC) 10 MG TAB PO SCH (20:08)
[2019-04-29 06:34] VITALS: BP 127/79
[2019-04-29] MEDS: FAMOTIDINE 20 MG TAB PO SCH ×2 (08:25→19:48)
[2019-04-29] MEDS: NICOTINE 7 MG/24 HR TRANSDERMAL TD SCH (08:25)
[2019-04-29] MEDS: PRAMIPEXOLE (MIRAPEX) 0.125 MG TAB PO SCH ×2 (08:25→19:48)
[2019-04-29] MEDS: LOSARTAN 25 MG TAB PO SCH (08:26)
[2019-04-29] MEDS: metFORMIN (GLUCOPHAGE) 1000 MG TABLET PO SCH ×2 (08:26→19:48)
[2019-04-29] MEDS: PALIPERIDONE 6 MG ER TAB (INVEGA) PO SCH ×2 (08:26→19:48)
[2019-04-29] MEDS: SERTRALINE HCL 50 MG TAB PO SCH (08:26)
[2019-04-29 15:49] VITALS: BP 143/85
[2019-04-29] MEDS: MAALOX 30 ML SUSP *UDC PO PRN (17:02)
[2019-04-29] MEDS: CETIRIZINE (ZyrTEC) 10 MG TAB PO SCH (19:48)
[2019-04-29] MEDS: traZODone 50 MG TAB PO PRN (19:48)
[2019-04-29] MEDS: DIVALPROEX 500 MG TAB PO SCH (19:48)
[2019-04-29] MEDS: OLANZapine 5 MG TAB PO SCH (19:49)
[2019-04-29] MEDS: amLODIPine 5 MG TAB PO SCH (19:49)
[2019-04-29] MEDS: ACETAMINOPHEN TAB 650MG DOSE (2X325MG) PO PRN (19:50)
[2019-04-30 06:50] VITALS: BP 127/78
[2019-04-30] MEDS: PRAMIPEXOLE (MIRAPEX) 0.125 MG TAB PO SCH ×2 (08:22→20:39)
[2019-04-30] MEDS: PALIPERIDONE 6 MG ER TAB (INVEGA) PO SCH ×2 (08:22→20:39)
[2019-04-30] MEDS: FAMOTIDINE 20 MG TAB PO SCH ×2 (08:22→20:39)
[2019-04-30] MEDS: LOSARTAN 25 MG TAB PO SCH (08:24)
[2019-04-30] MEDS: NICOTINE 7 MG/24 HR TRANSDERMAL TD SCH (08:24)
[2019-04-30] MEDS: SERTRALINE HCL 50 MG TAB PO SCH (08:24)
[2019-04-30] MEDS: metFORMIN (GLUCOPHAGE) 1000 MG TABLET PO SCH ×2 (08:24→20:38)
[2019-04-30] MEDS: ACETAMINOPHEN TAB 650MG DOSE (2X325MG) PO PRN (08:25)
--- NOTE | 2019-04-30 10:16 | MHIPNPDOC ---
[facility] Progress Note Progress Note DATE OF SERVICE: 04/30/19 HISTORY: She is 49 years old. She is admitted here after being discharged from [facility] just recently, time frame is unclear, she says that this was about a week or so ago, and she thinks she stayed there for about a week, I do not have access to those records, and that she was further disturbed when she was told about her diagnosis when she was there, says was told that she has schizophrenia, and says has been hearing voices, and some of them have been asking her to kill herself, says there is more than one voice and sometimes they talk to each other about her. She says she is further disturbed as she has a neighbor where she stays in [place], she says he is a sex offender, and that he has been disturbing her, again details unclear. She says she recently made a phone call to someone, and that has led her boyfriend in [place], [place] to senior living. Says he is mad at her now. She also spoke of not being treated well at [facility], and for being admonished for hugging another patient there, and for taking God's name. Says her mother lives in [place], and that they are in touch with each other, but she is not sure if her mother knows she is h ere. Says has been taking her medicines, and gets them regularly. According to the chart, is on olanzapine at 15 mg at night, Zoloft 50 mg daily, trazodone 150 mg at bedtime, this is in addition to ranitidine, cetirizine, losartan and metformin, Mirapex. Says has felt suicidal, and that she feels disturbed by this, she took pains to point out that she does not want to go to [facility]. Says attends [facility]. Is seen for followup in the presence of staff. Says has been upset, angry, and concerned about apparently a patient being intrusive on her, also suggested has had not much sleep. VITAL SIGNS: See below. NEW TEST RESULTS: Depakote level is within therapeutic range. CURRENT MEDICATIONS: See below. MENTAL STATUS EXAMINATION: General Appearance: dressed in hospital clothing, appears stated age Build: overweight Demeanor: pleasant, cooperative Eye Contact: fair Activity: average Behavior: cooperative, pleasant Speech: non-pressured but rapid, normal volume, spontaneous Mood: mildly hypomanic, but improving. Affect: congruent, anxious, very irritable Thought Process: flight of ideas, loose associations, tangential, easily distracted off topic, mildly paranoid Thought Content (Delusions): reports SI, denies HI/AVH, delusions ( improving delusions of being a account maintenance representative). Thought Content (Other): Mildly grandiose Thought Content (Aggressive): none reported Perception (Hallucinations): none reported Perception (Other): none reported Cognition (Impairment of): none reported Cognition(Intelligence Est.): average Oriented: Awake, Alert, Oriented times three Insight: improving Judgment: improving Psychosis: Denies DIAGNOSES: 1. Schizophrenia r/o schizoaffective d/o vs. Bipolar type 1 more manic with psychosis ASSESSMENT: Patient seen today and states she is doing better. She feels like the medicine is helping her and she has been getting much better sleep. She misses cooking for herself and doing other activities of daily living. She continues to have flight of ideas with tangential thinking and endorses an interest in becoming a country music machado, but acknowledges she would need to practice more. She continues to go to group sessions and has found them to be helpful. Over the weekend she had visitors who came in which she appreciated, but did not like that she wasn't able to close the door as she felt like someone was listening. Despite this she states her fear of other people is improving and feels like she has a supportive home environment. She feels like she is tolerating her medicines and they are beneficial. MANAGEMENT PLAN: 1. olanzapine 15 mg at night 2. sertraline 50 mg a day. 3. invega 6mg bid 4. depakote 500mg bid, depakote level is within therapeutic levels. TIME SPENT: 30 minutes. Vital Signs Vital Signs Date Time Temp Pulse Resp B/P (MAP) Pulse Ox O2 Delivery O2 Flow Rate FiO2 04/30/19 08:24 138/82 04/30/19 06:50 97.2 74 14 04/28/19 08:14 Room Air Laboratory Data 24H Labs Laboratory Tests 2 04/30/19 06:08: Bedside Glucose (Misc Panel) 101 Current Medications Current Medications Medications (Trade) Dose Ordered Sig/Breezy Route PRN Reason Start Time Stop Time Status Last Admin Dose Admin Acetaminophen (Tylenol Tab) 650 mg Q6HP PRN PO HEADACHE or DISCOMFORT 04/20/19 16:15 04/30/19 08:25 Al Hydrox/Mg Hydrox/Simethicone (Mylanta) 30 ml Q4HP PRN PO HEARTBURN/INDIGESTION 04/20/19 16:15 04/29/19 17:02 Amlodipine Besylate (Norvasc) 5 mg QHS PO 04/21/19 21:00 04/29/19 19:49 Cetirizine HCl (ZyrTEC) 10 mg QHS PO 04/21/19 21:00 04/29/19 19:48 Divalproex Sodium (Depakote) 500 mg BID PO 04/23/19 21:00 04/24/19 09:46 DC 04/24/19 08:27 Divalproex Sodium (Depakote) 1,000 mg QHS PO 04/24/19 21:00 04/29/19 19:48 Famotidine (Pepcid) 20 mg BID PO 04/22/19 21:00 04/30/19 08:22 Haloperidol (Haldol) 2 mg Q4HP PRN PO ANXIETY/AGITATION 04/20/19 16:15 04/24/19 02:34 DC Haloperidol (Haldol) 2 mg Q4HP PRN PO ANXIETY/AGITATION 04/24/19 02:34 04/28/19 19:41 Home Med (Med Rec Complete!) ASDIRECTED XX 04/20/19 17:15 04/20/19 17:15 DC Lorazepam (Ativan) 2 mg Q4HP PRN PO ANXIETY/AGITATION 04/20/19 16:15 04/27/19 16:14 DC 04/27/19 03:01 Losartan Potassium (Cozaar) 25 mg DAILY PO 04/21/19 15:00 04/30/19 08:24 Magnesium Hydroxide (Milk Of Magnesia) 30 ml DAILYPRN PRN PO CONSTIPATION 04/20/19 16:15 04/20/19 21:49 Metformin HCl (Glucophage) 1,000 mg BID PO 04/21/19 21:00 04/30/19 08:24 Nicotine (Nicoderm Cq 7 Mg) 1 patch DAILY TD 04/21/19 09:00 04/30/19 08:24 Olanzapine (ZyPREXA) 15 mg QHS PO 04/21/19 21:00 04/29/19 19:49 Paliperidone (Invega) 3 mg QAM PO 04/24/19 09:00 04/27/19 10:00 DC 04/26/19 08:41 Paliperidone (Invega) 3 mg QHS PO 04/23/19 21:00 04/27/19 10:00 DC 04/26/19 20:33 Paliperidone (Invega) 6 mg BID PO 04/27/19 21:00 04/30/19 08:22 Pramipexole Dihydrochloride (Mirapex) 0.125 mg BID PO 04/21/19 21:00 04/30/19 08:22 Senna/Docusate Sodium (Senokot S) 2 tab BIDP PRN PO CONSTIPATION 04/21/19 21:00 04/22/19 20:23 Sertraline HCl (Zoloft) 50 mg DAILY PO 04/21/19 14:00 04/30/19 08:24 Trazodone HCl (Desyrel) 50 mg QHSP PRN PO INSOMNIA 04/20/19 16:15 04/29/19 19:48 Allergies Coded Allergies: Cola Drinks (Verified Allergy, Intermediate, CARRIES EPI-PEN, DARK COLA PRODUCTS, 05/16/07) ACE CARVALHO DO Apr 30, 2019 10:16
--- NOTE | 2019-04-30 10:31 | MHIPNPDOC ---
[facility] Progress Note Progress Note DATE OF SERVICE: 04/24/19 HISTORY: She is 49 years old. She is admitted here after being discharged from just recently, time frame is unclear, she says that this w as about a week or so ago, and she thinks she stayed there for about a week, I do not have access to those records, and that she was further disturbed when she was told about her diagnosis when she was there, says was told that she has schizophrenia, and says has been hearing voices, and some of them have been asking her to kill herself, says there is more than one voice and sometimes they talk to each other about her. She says she is further disturbed as she has a neighbor where she stays in [place], she says he is a sex offender, and that he has been disturbing her, again details unclear. She says she recently made a phone call to someone, and that has led her boyfriend in [place], [place] to residential. Says he is mad at her now. She also spoke of not being treated well at [facility], and for being admonished for hugging another patient there, and for taking God's name. Says her mother lives in [place], and that they are in touch with each other, but she is not sure if her mother knows she is he re. Says has been taking her medicines, and gets them regularly. According to the chart, is on olanzapine at 15 mg at night, Zoloft 50 mg daily, trazodone 150 mg at bedtime, this is in addition to ranitidine, cetirizine, losartan and metformin, Mirapex. Says has felt suicidal, and that she feels disturbed by this, she took pains to point out that she does not want to go to [facility]. Says attends [facility]. Is seen for followup in the presence of staff. Says has been upset, angry, and concerned about apparently a patient being intrusive on her, also suggested has had not much sleep. VITAL SIGNS: See below. NEW TEST RESULTS: see below. CURRENT MEDICATIONS: See below. MENTAL STATUS EXAMINATION: General Appearance: unkempt, appears stated age, disheveled Build: overweight Demeanor: average, Eye Contact: good Activity: anxious, mildly agitated Behavior: cooperative, agitated, restless Speech: rapid, normal volume Mood: anxious, depressed Mood "worse, bad" Affect: congruent, anxious, disorganized Thought Process: flight of ideas, loose associations, tangential Thought Content (Delusions): reports SI, AVH, denies HI, reports possible delusions regarding her neighbor being a sexual offender Thought Content (Other): ideas of reference, obsessional Thought Content (Aggressive): none reported Perception (Hallucinations): reports hearing multiple voices telling her to kill herself, and having nightmare-like visual hallucinations. Perception (Other): none reported Cognition (Impairment of): none reported Cognition(Intelligence Est.): average Oriented: Awake, Alert, Oriented times three Insight: poor Judgment: poor Psychosis: Denies DIAGNOSES: 1. Schizophrenia ASSESSMENT: Patient seen today and reports she is feeling bad and worse since she went to group this morning. She reports being "pissed off" regarding another patient jessie was previously nice to her but upset her this morning. She reports she hasn't been able to sleep well here because she needs the radio playing or some noise and she hasn't had that here. She continues to discuss her concerns with her neighbor who she reports is a sex offender. She is upset because this kelsey is free and her brother is in penitentiary. She reports still hearing voices, and is frustrated with another patient here trying to cause a fight with her and following her around. When she began to elaborate on the voices, she got side- tracked and changed the subject a few times. She reports visual hallucinations as well, and states these are nightmares. I asked her if these occur while she is asleep or while she is awake and she reports both. She reports hearing multiple voices telling her to "kill myself." She doesn't notice a difference with the medications and doesn't feel like she has noticed any improvement. She reports the nightmares occur more lately because her brother is in penitentiary and she isn't able to talk to him or get a hold of him, and the holidays are coming up. She is also upset because she misses her kids, and she isn't allowed to see her grandchildren. She is worried her relationship with her boyfriend isn't going to last. She reports, "I'm the only one who treated him goodly." She reports she needs a brace because her ankle is bothering her. She reports SI/AVH, denies HI. She feels safe here. MANAGEMENT PLAN: consider change to Invega 3mg bid for psychosis, depakote 500mg bid for tonio 1. olanzapine 15 mg at night 2. sertraline 50 mg a day. TIME SPENT: 30 minutes. Vital Signs Vital Signs Date Time Temp Pulse Resp B/P (MAP) Pulse Ox O2 Delivery O2 Flow Rate FiO2 04/30/19 08:24 138/82 04/30/19 06:50 97.2 74 14 04/28/19 08:14 Room Air Laboratory Data 24H Labs Laboratory Tests 2 04/30/19 06:08: Bedside Glucose (Misc Panel) 101 Current Medications Current Medications Medications (Trade) Dose Ordered Sig/Breezy Route PRN Reason Start Time Stop Time Status Last Admin Dose Admin Acetaminophen (Tylenol Tab) 650 mg Q6HP PRN PO HEADACHE or DISCOMFORT 04/20/19 16:15 04/30/19 08:25 Al Hydrox/Mg Hydrox/Simethicone (Mylanta) 30 ml Q4HP PRN PO HEARTBURN/INDIGESTION 04/20/19 16:15 04/29/19 17:02 Amlodipine Besylate (Norvasc) 5 mg QHS PO 04/21/19 21:00 04/29/19 19:49 Cetirizine HCl (ZyrTEC) 10 mg QHS PO 04/21/19 21:00 04/29/19 19:48 Divalproex Sodium (Depakote) 500 mg BID PO 04/23/19 21:00 04/24/19 09:46 DC 04/24/19 08:27 Divalproex Sodium (Depakote) 1,000 mg QHS PO 04/24/19 21:00 04/29/19 19:48 Famotidine (Pepcid) 20 mg BID PO 04/22/19 21:00 04/30/19 08:22 Haloperidol (Haldol) 2 mg Q4HP PRN PO ANXIETY/AGITATION 04/20/19 16:15 04/24/19 02:34 DC Haloperidol (Haldol) 2 mg Q4HP PRN PO ANXIETY/AGITATION 04/24/19 02:34 04/28/19 19:41 Home Med (Med Rec Complete!) ASDIRECTED XX 04/20/19 17:15 04/20/19 17:15 DC Lorazepam (Ativan) 2 mg Q4HP PRN PO ANXIETY/AGITATION 04/20/19 16:15 04/27/19 16:14 DC 04/27/19 03:01 Losartan Potassium (Cozaar) 25 mg DAILY PO 04/21/19 15:00 04/30/19 08:24 Magnesium Hydroxide (Milk Of Magnesia) 30 ml DAILYPRN PRN PO CONSTIPATION 04/20/19 16:15 04/20/19 21:49 Metformin HCl (Glucophage) 1,000 mg BID PO 04/21/19 21:00 04/30/19 08:24 Nicotine (Nicoderm Cq 7 Mg) 1 patch DAILY TD 04/21/19 09:00 04/30/19 08:24 Olanzapine (ZyPREXA) 15 mg QHS PO 04/21/19 21:00 04/29/19 19:49 Paliperidone (Invega) 3 mg QAM PO 04/24/19 09:00 04/27/19 10:00 DC 04/26/19 08:41 Paliperidone (Invega) 3 mg QHS PO 04/23/19 21:00 04/27/19 10:00 DC 04/26/19 20:33 Paliperidone (Invega) 6 mg BID PO 04/27/19 21:00 04/30/19 08:22 Pramipexole Dihydrochloride (Mirapex) 0.125 mg BID PO 04/21/19 21:00 04/30/19 08:22 Senna/Docusate Sodium (Senokot S) 2 tab BIDP PRN PO CONSTIPATION 04/21/19 21:00 04/22/19 20:23 Sertraline HCl (Zoloft) 50 mg DAILY PO 04/21/19 14:00 04/30/19 08:24 Trazodone HCl (Desyrel) 50 mg QHSP PRN PO INSOMNIA 04/20/19 16:15 04/29/19 19:48 Allergies Coded Allergies: Cola Drinks (Verified Allergy, Intermediate, CARRIES EPI-PEN, DARK COLA PRODUCTS, 05/16/07) ACE CARVALHO DO Apr 30, 2019 10:31 am
[2019-04-30 18:10] VITALS: BP 144/66
[2019-04-30] MEDS: CETIRIZINE (ZyrTEC) 10 MG TAB PO SCH (20:39)
[2019-04-30] MEDS: DIVALPROEX 500 MG TAB PO SCH (20:40)
[2019-04-30] MEDS: OLANZapine 5 MG TAB PO SCH (20:41)
[2019-04-30] MEDS: amLODIPine 5 MG TAB PO SCH (20:41)
[2019-04-30] MEDS: traZODone 50 MG TAB PO PRN (20:41)
[2019-05-01 06:42] VITALS: BP 154/91
[2019-05-01] MEDS: LOSARTAN 25 MG TAB PO SCH (08:30)
[2019-05-01] MEDS: metFORMIN (GLUCOPHAGE) 1000 MG TABLET PO SCH ×2 (08:30→20:14)
[2019-05-01] MEDS: SERTRALINE HCL 50 MG TAB PO SCH (08:30)
[2019-05-01] MEDS: PALIPERIDONE 6 MG ER TAB (INVEGA) PO SCH ×2 (08:30→20:14)
[2019-05-01] MEDS: PRAMIPEXOLE (MIRAPEX) 0.125 MG TAB PO SCH ×2 (08:30→22:15)
[2019-05-01] MEDS: FAMOTIDINE 20 MG TAB PO SCH ×2 (08:30→20:13)
[2019-05-01] MEDS: NICOTINE 7 MG/24 HR TRANSDERMAL TD SCH (08:31)
--- NOTE | 2019-05-01 10:27 | MHIPNPDOC ---
[facility] Progress Note Progress Note DATE OF SERVICE: 05/01/19 HISTORY: She is 49 years old. She is admitted here after being discharged from [facility] just recently, time frame is unclear, she says that this w as about a week or so ago, and she thinks she stayed there for about a week, I do not have access to those records, and that she was further disturbed when she was told about her diagnosis when she was there, says was told that she has schizophrenia, and says has been hearing voices, and some of them have been asking her to kill herself, says there is more than one voice and sometimes they talk to each other about her. She says she is further disturbed as she has a neighbor where she stays in [place], she says he is a sex offender, and that he has been disturbing her, again details unclear. She says she recently made a phone call to someone, and that has led her boyfriend in [place], [place] to skilled nursing. Says he is mad at her now. She also spoke of not being treated well at [facility], and for being admonished for hugging another patient there, and for taking God's name. Says her mother lives in [place], and that they are in touch with each other, but she is not sure if her mother knows she is he re. Says has been taking her medicines, and gets them regularly. According to the chart, is on olanzapine at 15 mg at night, Zoloft 50 mg daily, trazodone 150 mg at bedtime, this is in addition to ranitidine, cetirizine, losartan and metformin, Mirapex. Says has felt suicidal, and that she feels disturbed by this, she took pains to point out that she does not want to go to [facility]. Says attends [facility]. Is seen for followup in the presence of staff. Says has been upset, angry, and concerned about apparently a patient being intrusive on her, also suggested has had not much sleep. VITAL SIGNS: See below. NEW TEST RESULTS: depakote level 74.5 therapeutic CURRENT MEDICATIONS: See below. MENTAL STATUS EXAMINATION: General Appearance: unkempt, appears stated age, disheveled Build: overweight Demeanor: average Eye Contact: good Activity: fatigued, anxious Behavior: cooperative Speech: raspy due to being ill Mood: anxious, depressed Mood "I feel sick" Affect: congruent, anxious Thought Process: improved flight of ideas, loose associations, tangential. More linear and logical Thought Content (Delusions): denies SI/HI, AVH Thought Content (Other): improved ideas of reference, obsessional Thought Content (Aggressive): none reported Perception (Hallucinations): none reported. Perception (Other): none reported Cognition (Impairment of): none reported Cognition(Intelligence Est.): average Oriented: Awake, Alert, Oriented times three Insight: poor Judgment: poor Psychosis: Denies DIAGNOSES: 1. Bipolar d/o mre manic with psychosis ASSESSMENT: Patient seen today and endorsing feeling ill with a URI and her voice is raspy. She sounds and appears ill. Agreeable to azithromycin as treatment and denies allergies to drug. FAtigue due to not feeling physically well. Marilyn is improved though and pt's thoughts are more linear and logical, less paranoia or others. Attention is improved today. Remains mildly tangential with some flight of ideas. She reports she slept well last night. She continues to discuss her concerns with her neighbor who she reports is a sex offender. She is upset because this kelsey is free and her brother is in long term. She reports denies AVH today. She states she's tolerating her medication and feels they're beneficial. She continues to miss her kids and feeling upset b/c she isn't allowed to see her grandchildren. She attending groups and finding them helpful. She is social in the milieu occasion and states she's getting along well with her roommate. She reports SI/AVH, denies HI. She feels safe here. MANAGEMENT PLAN: azithromycin 500mg daily for 7 days for URI 1. olanzapine 15 mg at night 2. sertraline 50 mg a day. 3. depakote 1,000mg 4. azithromycin 500mg daily for 7 days TIME SPENT: 30 minutes. Vital Signs Vital Signs Date Time Temp Pulse Resp B/P (MAP) Pulse Ox O2 Delivery O2 Flow Rate FiO2 05/01/19 08:30 130/64 05/01/19 06:42 99.3 96 14 04/28/19 08:14 Room Air Laboratory Data 24H Labs Laboratory Tests 2 05/01/19 06:51: Bedside Glucose (Misc Panel) 115H Current Medications Current Medications Medications (Trade) Dose Ordered Sig/Breezy Route PRN Reason Start Time Stop Time Status Last Admin Dose Admin Acetaminophen (Tylenol Tab) 650 mg Q6HP PRN PO HEADACHE or DISCOMFORT 04/20/19 16:15 04/30/19 08:25 Al Hydrox/Mg Hydrox/Simethicone (Mylanta) 30 ml Q4HP PRN PO HEARTBURN/INDIGESTION 04/20/19 16:15 04/29/19 17:02 Amlodipine Besylate (Norvasc) 5 mg QHS PO 04/21/19 21:00 04/30/19 20:41 Cetirizine HCl (ZyrTEC) 10 mg QHS PO 04/21/19 21:00 04/30/19 20:39 Divalproex Sodium (Depakote) 500 mg BID PO 04/23/19 21:00 04/24/19 09:46 DC 04/24/19 08:27 Divalproex Sodium (Depakote) 1,000 mg QHS PO 04/24/19 21:00 04/30/19 20:40 Famotidine (Pepcid) 20 mg BID PO 04/22/19 21:00 05/01/19 08:30 Haloperidol (Haldol) 2 mg Q4HP PRN PO ANXIETY/AGITATION 04/20/19 16:15 04/24/19 02:34 DC Haloperidol (Haldol) 2 mg Q4HP PRN PO ANXIETY/AGITATION 04/24/19 02:34 04/28/19 19:41 Home Med (Med Rec Complete!) ASDIRECTED XX 04/20/19 17:15 04/20/19 17:15 DC Lorazepam (Ativan) 2 mg Q4HP PRN PO ANXIETY/AGITATION 04/20/19 16:15 04/27/19 16:14 DC 04/27/19 03:01 Losartan Potassium (Cozaar) 25 mg DAILY PO 04/21/19 15:00 05/01/19 08:30 Magnesium Hydroxide (Milk Of Magnesia) 30 ml DAILYPRN PRN PO CONSTIPATION 04/20/19 16:15 04/20/19 21:49 Metformin HCl (Glucophage) 1,000 mg BID PO 04/21/19 21:00 05/01/19 08:30 Nicotine (Nicoderm Cq 7 Mg) 1 patch DAILY TD 04/21/19 09:00 05/01/19 08:31 Olanzapine (ZyPREXA) 15 mg QHS PO 04/21/19 21:00 04/30/19 20:41 Paliperidone (Invega) 3 mg QAM PO 04/24/19 09:00 04/27/19 10:00 DC 04/26/19 08:41 Paliperidone (Invega) 3 mg QHS PO 04/23/19 21:00 04/27/19 10:00 DC 04/26/19 20:33 Paliperidone (Invega) 6 mg BID PO 04/27/19 21:00 05/01/19 08:30 Pramipexole Dihydrochloride (Mirapex) 0.125 mg BID PO 04/21/19 21:00 05/01/19 08:30 Senna/Docusate Sodium (Senokot S) 2 tab BIDP PRN PO CONSTIPATION 04/21/19 21:00 04/22/19 20:23 Sertraline HCl (Zoloft) 50 mg DAILY PO 04/21/19 14:00 05/01/19 08:30 Trazodone HCl (Desyrel) 50 mg QHSP PRN PO INSOMNIA 04/20/19 16:15 04/30/19 20:41 Allergies Coded Allergies: Cola Drinks (Verified Allergy, Intermediate, CARRIES EPI-PEN, DARK COLA PRODUCTS, 05/16/07) ACE CARVALHO DO May 01, 2019 9:04 am
[2019-05-01] MEDS ORDERED: AZITHROMYCIN 250 MG TAB PO ONE (10:45)
[2019-05-01] MEDS: CEPACOL LOZENGE PO PRN ×3 (10:56→20:21)
[2019-05-01 16:46] VITALS: BP 125/66
[2019-05-01] MEDS: CETIRIZINE (ZyrTEC) 10 MG TAB PO SCH (20:14)
[2019-05-01] MEDS: OLANZapine 5 MG TAB PO SCH (20:15)
[2019-05-01] MEDS: DIVALPROEX 500 MG TAB PO SCH (20:15)
[2019-05-01] MEDS: amLODIPine 5 MG TAB PO SCH (20:16)
[2019-05-01] MEDS: traZODone 50 MG TAB PO PRN (20:16)
[2019-05-02 06:28] VITALS: BP 149/96
[2019-05-02] MEDS: PALIPERIDONE 6 MG ER TAB (INVEGA) PO SCH ×2 (08:19→21:15)
[2019-05-02] MEDS: metFORMIN (GLUCOPHAGE) 1000 MG TABLET PO SCH ×2 (08:19→21:14)
[2019-05-02] MEDS: SERTRALINE HCL 50 MG TAB PO SCH (08:19)
[2019-05-02] MEDS: PRAMIPEXOLE (MIRAPEX) 0.125 MG TAB PO SCH ×2 (08:25→21:13)
[2019-05-02] MEDS: NICOTINE 7 MG/24 HR TRANSDERMAL TD SCH (08:25)
[2019-05-02] MEDS: FAMOTIDINE 20 MG TAB PO SCH ×2 (08:25→21:14)
[2019-05-02] MEDS: LOSARTAN 25 MG TAB PO SCH (08:25)
[2019-05-02] MEDS: AZITHROMYCIN 250 MG TAB PO SCH (08:25)
--- NOTE | 2019-05-02 10:05 | MHIPNPDOC ---
[facility] Progress Note Progress Note DATE OF SERVICE: 05/02/19 HISTORY: She is 49 years old. She is admitted here after being discharged from [facility] just recently, time frame is unclear, she says that this w as about a week or so ago, and she thinks she stayed there for about a week, I do not have access to those records, and that she was further disturbed when she was told about her diagnosis when she was there, says was told that she has schizophrenia, and says has been hearing voices, and some of them have been asking her to kill herself, says there is more than one voice and sometimes they talk to each other about her. She says she is further disturbed as she has a neighbor where she stays in [place], she says he is a sex offender, and that he has been disturbing her, again details unclear. She says she recently made a phone call to someone, and that has led her boyfriend in [place], [place] to [facility]. Says he is mad at her now. She also spoke of not being treated well at [facility], and for being admonished for hugging another patient there, and for taking God's name. Says her mother lives in [place], and that they are in touch with each other, but she is not sure if her mother knows she is he re. Says has been taking her medicines, and gets them regularly. According to the chart, is on olanzapine at 15 mg at night, Zoloft 50 mg daily, trazodone 150 mg at bedtime, this is in addition to ranitidine, cetirizine, losartan and metformin, Mirapex. Says has felt suicidal, and that she feels disturbed by this, she took pains to point out that she does not want to go to [facility]. Says attends [facility]. Is seen for followup in the presence of staff. Says has been upset, angry, and concerned about apparently a patient being intrusive on her, also suggested has had not much sleep. VITAL SIGNS: See below. NEW TEST RESULTS: depakote level 74.5 therapeutic CURRENT MEDICATIONS: See below. MENTAL STATUS EXAMINATION: General Appearance: clean, appears stated age, in own clothes Build: overweight Demeanor: average Eye Contact: good Activity: average Behavior: cooperative Speech: less raspy due to being ill Mood: euthymic, full Mood "better" Affect: congruent, euthymic Thought Process: More linear and logical Thought Content (Delusions): denies SI/HI, AVH Thought Content (Other): none reported Thought Content (Aggressive): none reported Perception (Hallucinations): none reported. Perception (Other): none reported Cognition (Impairment of): none reported Cognition(Intelligence Est.): average Oriented: Awake, Alert, Oriented times three Insight: fair Judgment: fair Psychosis: Denies DIAGNOSES: 1. Bipolar d/o mre manic with psychosis ASSESSMENT: Patient seen today and states she feels better regarding URI symptoms with the start of azithromycin yesterday and she does sound better. States her mood is good and that she's hopeful to go home soon. States she's tolerating her medications and feels they're beneficial. She denies manic or depressive symptoms and she doesn't not appear manic or depressed at this time. Her thoughts are more linear and logical with less tangential and flight of ideas. Attention is good today. She reports she slept well last night. She attending groups and finding them helpful. She is social in the milieu and states she's getting along well with her roommate. She denies SI/HI, hallucinations, delusions, paranoia today. She feels safe here. MANAGEMENT PLAN: d/c planning for tomorrow 1. olanzapine 15 mg at night 2. sertraline 50 mg a day. 3. depakote 1,000mg 4. azithromycin 500mg daily for 7 days TIME SPENT: 30 minutes. Vital Signs Vital Signs Date Time Temp Pulse Resp B/P (MAP) Pulse Ox O2 Delivery O2 Flow Rate FiO2 05/02/19 08:25 100/70 05/02/19 06:28 97.6 88 16 04/28/19 08:14 Room Air Laboratory Data 24H Labs Laboratory Tests 2 05/02/19 06:40: Bedside Glucose (Misc Panel) 94 Current Medications Current Medications Medications (Trade) Dose Ordered Sig/Breezy Route PRN Reason Start Time Stop Time Status Last Admin Dose Admin Acetaminophen (Tylenol Tab) 650 mg Q6HP PRN PO HEADACHE or DISCOMFORT 04/20/19 16:15 04/30/19 08:25 Al Hydrox/Mg Hydrox/Simethicone (Mylanta) 30 ml Q4HP PRN PO HEARTBURN/INDIGESTION 04/20/19 16:15 04/29/19 17:02 Amlodipine Besylate (Norvasc) 5 mg QHS PO 04/21/19 21:00 04/30/19 20:41 Azithromycin (Zithromax Tab) 500 mg DAILY PO 05/02/19 09:00 05/03/19 09:01 05/02/19 08:25 Cetirizine HCl (ZyrTEC) 10 mg QHS PO 04/21/19 21:00 05/01/19 20:14 Cetylpyridinium Chloride (Cepacol) 1 sheila Q4HP PRN PO COUGH 05/01/19 10:30 05/01/19 20:21 Divalproex Sodium (Depakote) 500 mg BID PO 04/23/19 21:00 04/24/19 09:46 DC 04/24/19 08:27 Divalproex Sodium (Depakote) 1,000 mg QHS PO 04/24/19 21:00 05/01/19 20:15 Famotidine (Pepcid) 20 mg BID PO 04/22/19 21:00 05/02/19 08:25 Haloperidol (Haldol) 2 mg Q4HP PRN PO ANXIETY/AGITATION 04/20/19 16:15 04/24/19 02:34 DC Haloperidol (Haldol) 2 mg Q4HP PRN PO ANXIETY/AGITATION 04/24/19 02:34 04/28/19 19:41 Home Med (Med Rec Complete!) ASDIRECTED XX 04/20/19 17:15 04/20/19 17:15 DC Lorazepam (Ativan) 2 mg Q4HP PRN PO ANXIETY/AGITATION 04/20/19 16:15 04/27/19 16:14 DC 04/27/19 03:01 Losartan Potassium (Cozaar) 25 mg DAILY PO 04/21/19 15:00 05/02/19 08:25 Magnesium Hydroxide (Milk Of Magnesia) 30 ml DAILYPRN PRN PO CONSTIPATION 04/20/19 16:15 04/20/19 21:49 Metformin HCl (Glucophage) 1,000 mg BID PO 04/21/19 21:00 05/02/19 08:19 Nicotine (Nicoderm Cq 7 Mg) 1 patch DAILY TD 04/21/19 09:00 05/02/19 08:25 Olanzapine (ZyPREXA) 15 mg QHS PO 04/21/19 21:00 05/01/19 20:15 Paliperidone (Invega) 3 mg QAM PO 04/24/19 09:00 04/27/19 10:00 DC 04/26/19 08:41 Paliperidone (Invega) 3 mg QHS PO 04/23/19 21:00 04/27/19 10:00 DC 04/26/19 20:33 Paliperidone (Invega) 6 mg BID PO 04/27/19 21:00 05/02/19 08:19 Pramipexole Dihydrochloride (Mirapex) 0.125 mg BID PO 04/21/19 21:00 05/02/19 08:25 Senna/Docusate Sodium (Senokot S) 2 tab BIDP PRN PO CONSTIPATION 04/21/19 21:00 04/22/19 20:23 Sertraline HCl (Zoloft) 50 mg DAILY PO 04/21/19 14:00 05/02/19 08:19 Trazodone HCl (Desyrel) 50 mg QHSP PRN PO INSOMNIA 04/20/19 16:15 05/01/19 20:16 Allergies Coded Allergies: Cola Drinks (Verified Allergy, Intermediate, CARRIES EPI-PEN, DARK COLA PRODUCTS, 05/16/07) ACE CARVALHO DO May 02, 2019 10:05 am
[2019-05-02 16:12] VITALS: BP 109/65
[2019-05-02] MEDS: amLODIPine 5 MG TAB PO SCH (21:00)
[2019-05-02] MEDS: CETIRIZINE (ZyrTEC) 10 MG TAB PO SCH (21:14)
[2019-05-02] MEDS: DIVALPROEX 500 MG TAB PO SCH (21:15)
[2019-05-02] MEDS: OLANZapine 5 MG TAB PO SCH (21:15)
[2019-05-02] MEDS: traZODone 50 MG TAB PO PRN (21:15)
[2019-05-03 07:38] VITALS: BP 155/92
[2019-05-03] MEDS: FAMOTIDINE 20 MG TAB PO SCH (08:24)
[2019-05-03] MEDS: metFORMIN (GLUCOPHAGE) 1000 MG TABLET PO SCH (08:24)
[2019-05-03] MEDS: PRAMIPEXOLE (MIRAPEX) 0.125 MG TAB PO SCH (08:24)
[2019-05-03] MEDS: PALIPERIDONE 6 MG ER TAB (INVEGA) PO SCH (08:24)
[2019-05-03] MEDS: AZITHROMYCIN 250 MG TAB PO SCH (08:24)
[2019-05-03] MEDS: SERTRALINE HCL 50 MG TAB PO SCH (08:24)
[2019-05-03 08:25] VITALS: BP 155/92
[2019-05-03] MEDS: NICOTINE 7 MG/24 HR TRANSDERMAL TD SCH (08:25)
[2019-05-03] MEDS: LOSARTAN 25 MG TAB PO SCH (08:25)
[2019-05-03] MEDS ORDERED: INVE9TAB PO (09:06)
[2019-05-03] MEDS ORDERED: SERT-155 PO (09:06)
[2019-05-03] MEDS ORDERED: TRAZ-252 PO (09:06)
[2019-05-03] MEDS ORDERED: DEPA1TAB3 PO (09:06)
[2019-05-03] MEDS ORDERED: OLAN15TA PO (09:06)
--- NOTE | 2019-05-03 09:07 | MHDSPDOC ---
[facility] Discharge Summary Discharge Summary DATE OF ADMISSION: Apr 20, 2019 at 4:04 pm DATE OF DISCHARGE: May 03, 2019 DISCHARGE DIAGNOSES: Bipolar d/o mre manic with psychosis REASON FOR ADMISSION: She is 49 years old. She is admitted here after being discharged from [facility] just recently, time frame is unclear, she says that this was about a week or so ago, and she thinks she stayed there for about a week, I do not have access to those records, and that she was further disturbed when she was told about her diagnosis when she was there, says was told that she has schizophrenia, and says has been hearing voices, and some of them have been asking her to kill herself, says there is more than one voice and sometimes they talk to each other about her. She says she is further disturbed as she has a neighbor where she stays in [place], she says he is a sex offender, and that he has been disturbing her, again details unclear. She says she recently made a phone call to someone, and that has led her boyfriend in [place], [place] to [facility]. Says he is mad at her now. She also spoke of not being treated well at [facility], and for being admonished for hugging another patient there, and for taking God's name. Says her mother lives in [place], and that they are in touch with each other, but she is not sure if her mother knows she is here. Says has been taking her medicines, and gets them regularly. According to the chart, is on olanzapine at 15 mg at night, Z oloft 50 mg daily, trazodone 150 mg at bedtime, this is in addition to ranitidine, cetirizine, losartan and metformin, Mirapex. Says has felt suicidal, and that she feels disturbed by this, she took pains to point out that she does not want to go to [facility]. Says attends [facility]. Is seen for followup in the presence of staff. Says has been upset, angry, and concerned about apparently a patient being intrusive on her, also suggested has had not much sleep. CONSULTANTS INVOLVED: medicine for diabetes TEST RESULTS: [facility] level 74.5 therapeutic TREATMENT AND PROGRESS ON THE UNIT : Pt was admitted to [facility], seen for psychiatric assessment and restarted on her outpatient zoloft 50mg daily for mood and anxiety and zyprexa 15mg qhs for psychosis. She was started on depakote 1,000mg nightly for mood stabilization that she tolerating well and her manic symptoms improved greatly with treatment. Her depakote level was 74.5 and therapeutic prior d/c. She was started on invega increased to 6mg bid with Rx of 9mg nightly for psychosis that she tolerated well and found beneficial. She was seen by aniketne during her stay for a history of diabetes. Pt developed URI symptoms during her stay and she was started on azithromycin 500mg daily for 3 days with completion of drug and resolution of URI symptoms prior d/c. She was provided trazodone 50mg qhs prn insomnia. Pt found her medications beneficial and tolerated them well. She attended groups daily during her stay. Her symptoms improved with treatment. On day of discharge she denied depression, tonio, anxiety, insomnia, SI/HI, hallucinations, delusions and paranoia. She was discharged home with follow-up at [facility]. She felt safe for discharge DISCHARGE ASSESSMENT: Patient seen today and states she feels "good" and is looking forward to being d/c home today. States she's tolerating her medications and feels they're beneficial for her. She denies tonio, psychosis, paranoia. She appears euthymic, appropriate, not psychotic, and her thoughts are linear and logical. She states her URI symptoms are greatly improved with treatment. Attention is good today. She reports she slept well last night. She attending groups and finding them helpful. She is social in the milieu and states she's getting along well with her roommate. She is sleeping well at night. She denies depression, tonio, anxiety, insomnia, SI/HI, hallucinations, delusions, paranoia today. She feels safe to be discharged home today. MENTAL STATUS EXAMINATION ON DISCHARGE: General Appearance: clean, appears stated age, in own clothes Build: overweight Demeanor: average Eye Contact: good Activity: average Behavior: cooperative Speech: reg rate/rhythm, spontaneous Mood: euthymic, full Mood "good" Affect: congruent, euthymic Thought Process: More linear and logical Thought Content (Delusions): denies SI/HI, AVH Thought Content (Other): none reported Thought Content (Aggressive): none reported Perception (Hallucinations): none reported. Perception (Other): none reported Cognition (Impairment of): none reported Cognition(Intelligence Est.): average Oriented: Awake, Alert, Oriented times three Insight: good Judgment: good Psychosis: Denies MEDICATIONS ON DISCHARGE: 1. olanzapine 15 mg at night 2. sertraline 50 mg a day. 3. depakote 1,000mg 4. trazodone 50mg qhs prn insomnia 5. invega 9mg qhs PLAN/FOLLOWUP ARRANGEMENTS: D/c home with follow-up at at [facility]. The amount of time spent in the coordination of care for this patient was approximately 30 minutes. Vital Signs/I&Os Vital Signs Date Time Temp Pulse Resp B/P (MAP) Pulse Ox O2 Delivery O2 Flow Rate FiO2 05/03/19 08:25 155/92 05/03/19 07:38 98.5 104 18 04/28/19 08:14 Room Air Laboratory Data Labs 24H Laboratory Tests 2 05/03/19 07:21: Bedside Glucose (Misc Panel) 93 Medications Scheduled Cetirizine HCl (Cetirizine HCl) 10 Mg Tablet, 10 MG PO QHS, (Reported) PATIENT STATES THIS ALLERGY MEDICATION IS NOT WORKING FOR HER AND WAS INQUIRING ABOUT POSSIBLY SWITCHING TO SOMETHING DIFFERENT Losartan Potassium (Losartan Potassium) 25 Mg Tablet, 25 MG PO DAILY, (Reported) Metformin HCl (Metformin HCl) 500 Mg Tablet, 1,000 MG PO BID, (Reported) Olanzapine (Olanzapine) 15 Mg Tablet, 15 MG PO QHS, (Reported) Pramipexole Di-HCl (Mirapex) 0.25 Mg Tablet, 0.125 MG PO BID, (Reported) Ranitidine HCl (Ranitidine HCl) 150 Mg Tablet, 1 TAB PO BID, (Reported) Sertraline HCl (Sertraline HCl) 50 Mg Tablet, 50 MG PO DAILY, (Reported) Trazodone HCl (Trazodone HCl) 50 Mg Tablet, 150 MG PO QHS, (Reported) PATIENT STATES THAT THIS MEDICATION HAS NOT BEEN HELPING HER SLEEP. HOWEVER, SHE STATES SHE HAS ONLY BEEN TAKING ONE TABLET AND THE DIRECTIONS FROM HER PHARMACY SAYS 3 TABLETS AT BEDTIME Allergies Coded Allergies: Cola Drinks (Verified Allergy, Intermediate, CARRIES EPI-PEN, DARK COLA PRODUCTS, 05/16/07) ACE CARVALHO DO May 03, 2019 9:07 am
== END 2019-05-03 14:30 | disposition home or self-care (01) | DRG 885 ==
LOC: M ED 12:16 → M ED INP 16:04 → M PSY 18:10
PROVIDERS: ADMIT Psychiatry & Neurology Psychiatry; ATTEND Psychiatry & Neurology Psychiatry
DX: F31.2 Bipolar disorder, current episode manic severe with psychotic features (principal); Z68.42 Body mass index [BMI] 45.0-49.9, adult; E11.9 Type 2 diabetes mellitus without complications; I10 Essential (primary) hypertension; Z63.0 Problems in relationship with spouse or partner; Z63.8 Other specified problems related to primary support group; E78.00 Pure hypercholesterolemia, unspecified; E66.9 Obesity, unspecified; E88.81 Metabolic syndrome and other insulin resistance; Z56.0 Unemployment, unspecified; F17.210 Nicotine dependence, cigarettes, uncomplicated; F29 Unspecified psychosis not due to a substance or known physiological condition; K59.09 Other constipation; M25.571 Pain in right ankle and joints of right foot; Z79.84 Long term (current) use of oral hypoglycemic drugs; Z79.899 Other long term (current) drug therapy; Z91.018 Allergy to other foods

== ENCOUNTER 2019-05-05 19:27 | Emergency (ER) | payer MEDICARE, MEDICAID ==
[~2019-05-05] VITALS: Ht 157.5 cm; Wt 111.8 kg
[~2019-05-05 19:27] MED LIST: ALL10TAB29 PO; DEPA1TAB3 PO; INVE9TAB PO; LOSA25TA14 PO; METF500T13 PO; MIRA0.254 PO; OLAN15TA PO; PRAMIPEXOLE; RANI150T14 PO; SERT-155 PO; TRAZ-252 PO
[2019-05-05 20:04] LABS: HEMATOCRIT 35.7 % (36.0-47.0); HEMOGLOBIN 11.8 g/dl (12.0-15.5); MEAN CORPUSCULAR HEMOGLOBIN 30.3 pg (27.0-33.0); MEAN CORPUSCULAR HGB CONC 33.1 g/dl (32.0-36.5); MEAN CORPUSCULAR VOLUME 91.5 fl (80.0-96.0); PLATELET COUNT, AUTOMATED 261 10^3/uL (150-450); WHITE BLOOD COUNT 10.4 10^3/uL (4.0-10.0)
[2019-05-05 20:33] LABS: HCG, SERUM QUALITATIVE NEGATIVE (NEGATIVE)
[2019-05-05 20:47] LABS: AMPHETAMINES LEVEL URINE NEGATIVE (NEGATIVE); BARBITURATES URINE NEGATIVE (NEGATIVE); BENZODIAZEPINES URINE NEGATIVE (NEGATIVE); CANNABINOIDS URINE NEGATIVE (NEGATIVE); COCAINE METABOLITE URINE NEGATIVE (NEGATIVE); METHADONE URINE NEGATIVE (NEGATIVE); OPIATES URINE NEGATIVE (NEGATIVE); PHENCYCLIDINE URINE NEGATIVE (NEGATIVE)
[2019-05-05 21:10] LABS: ACETAMINOPHEN LEVEL < 2.0 UG/ML (10.0-30.0); ALBUMIN 3.5 GM/DL (3.2-5.2); ALT/SGPT 39 U/L (12-78); BILIRUBIN,DIRECT < 0.1 MG/DL (0.0-0.2); BILIRUBIN,TOTAL 0.2 MG/DL (0.2-1.0); BLOOD UREA NITROGEN 14 MG/DL (7-18); CARBON DIOXIDE LEVEL 30 MEQ/L (21-32); CHLORIDE LEVEL 101 MEQ/L (98-107); CREATININE FOR GFR 0.75 MG/DL (0.55-1.30); ETHYL ALCOHOL (ETHANOL) < 0.003 % (0.000-0.010); GLOMERULAR FILTRATION RATE > 60.0 (>58); GLUCOSE, FASTING 148 MG/DL (70-100); POTASSIUM SERUM 3.9 MEQ/L (3.5-5.1); SALICYLATE LEVEL < 1.7 MG/DL (5.0-30.0); SODIUM LEVEL 140 MEQ/L (136-145); TOTAL PROTEIN 7.4 GM/DL (6.4-8.2); VALPROIC ACID (DEPAKOTE) 47.2 UG/ML (50.0-100.0)
[2019-05-06 01:56] VITALS: BP 167/95
--- NOTE | 2019-05-06 08:16 | ECGEPIP ---
[facility] - ED Test Date: 2019-05-05 Pat Name: TYRESE PRADHAN Department: Room: - Gender: Female Creative Services Intern: KALYAN : 1970 Requested By: KELSEY Hernandez Order Number: [id number] Reading MD: Angela Levy Measurements Intervals [place] Rate: 83 P: 53 [place]: 167 QRS: -40 QRSD: 94 T: 14 QT: 372 QTc: 438 Interpretive Statements SINUS RHYTHM MARKED LEFT AXIS DEVIATION INCOMPLETE RIGHT BUNDLE BRANCH BLOCK INCREASED RATE 04/09/19 Electronically Signed on 05-06-2019 8:16:22 EDT by Angela Levy
== END 2019-05-06 02:07 | disposition short-term general hospital (02) ==
LOC: M ED 19:27
DX: F06.2 Psychotic disorder with delusions due to known physiological condition (principal); I45.19 Other right bundle-branch block; E11.9 Type 2 diabetes mellitus without complications; I10 Essential (primary) hypertension; E78.00 Pure hypercholesterolemia, unspecified; F31.89 Other bipolar disorder; F17.200 Nicotine dependence, unspecified, uncomplicated; Z79.84 Long term (current) use of oral hypoglycemic drugs; Z79.899 Other long term (current) drug therapy; Z91.018 Allergy to other foods
CPT/HCPCS: 80048; 80076; 80164; 80307; 84443; 84703; 85027; 93005; 99285; G0480

== ENCOUNTER 2019-08-10 13:44 | Inpatient (IN) | payer MEDICARE, MEDICAID ==
[~2019-08-10] VITALS: Ht 152.4 cm; Wt 104.6 kg
[~2019-08-10 13:44] MED LIST changes: -SERT-155 PO; +SERT50TA29 PO
[2019-08-10 15:07] LABS: HEMATOCRIT 38.7 % (36.0-47.0); HEMOGLOBIN 12.2 g/dl (12.0-15.5); MEAN CORPUSCULAR HEMOGLOBIN 29.5 pg (27.0-33.0); MEAN CORPUSCULAR HGB CONC 31.5 g/dl (32.0-36.5); MEAN CORPUSCULAR VOLUME 93.5 fl (80.0-96.0); PLATELET COUNT, AUTOMATED 269 10^3/uL (150-450); RED BLOOD COUNT 4.14 10^6/uL (4.00-5.40); WHITE BLOOD COUNT 9.8 10^3/uL (4.0-10.0)
[2019-08-10 15:35] LABS: HCG, SERUM QUALITATIVE NEGATIVE (NEGATIVE)
[2019-08-10 15:45] LABS: ACETAMINOPHEN LEVEL < 2.0 UG/ML (10.0-30.0); ALBUMIN 3.4 GM/DL (3.2-5.2); ALT/SGPT 27 U/L (12-78); BILIRUBIN,DIRECT < 0.1 MG/DL (0.0-0.2); BILIRUBIN,TOTAL 0.2 MG/DL (0.2-1.0); BLOOD UREA NITROGEN 12 MG/DL (7-18); CALCIUM LEVEL 8.8 MG/DL (8.5-10.1); CARBON DIOXIDE LEVEL 28 MEQ/L (21-32); CHLORIDE LEVEL 103 MEQ/L (98-107); CREATININE FOR GFR 0.73 MG/DL (0.55-1.30); ETHYL ALCOHOL (ETHANOL) < 0.003 % (0.000-0.010); GLOMERULAR FILTRATION RATE > 60.0 (>58); GLUCOSE, FASTING 100 MG/DL (70-100); POTASSIUM SERUM 4.1 MEQ/L (3.5-5.1); SALICYLATE LEVEL < 1.7 MG/DL (5.0-30.0); SODIUM LEVEL 141 MEQ/L (136-145); TOTAL PROTEIN 7.5 GM/DL (6.4-8.2)
[2019-08-10 16:00] LABS: AMPHETAMINES LEVEL URINE NEGATIVE (NEGATIVE); BARBITURATES URINE NEGATIVE (NEGATIVE); BENZODIAZEPINES URINE NEGATIVE (NEGATIVE); CANNABINOIDS URINE NEGATIVE (NEGATIVE); COCAINE METABOLITE URINE NEGATIVE (NEGATIVE); METHADONE URINE NEGATIVE (NEGATIVE); OPIATES URINE NEGATIVE (NEGATIVE); PHENCYCLIDINE URINE NEGATIVE (NEGATIVE)
[2019-08-10] MEDS ORDERED: MOM 30ML SUSPENSION UDC PO PRN (18:15)
[2019-08-10] MEDS ORDERED: ACETAMINOPHEN TAB 650MG DOSE (2X325MG) PO PRN (18:15)
[2019-08-10] MEDS ORDERED: MAALOX 30 ML SUSP *UDC PO PRN (18:15)
[2019-08-10] MEDS ORDERED: DIVA250T67 PO (19:11)
[2019-08-10] MEDS ORDERED: MIRA0.12 PO (19:11)
[2019-08-10] MEDS ORDERED: METF10004 PO (19:11)
[2019-08-10] MEDS ORDERED: RISP1TAB3 PO (19:11)
[2019-08-10] MEDS ORDERED: PROTPAK PO (19:11)
[2019-08-10] MEDS ORDERED: GABA-1171 PO (19:11)
[2019-08-10] MEDS ORDERED: OLAN15TA PO (19:11)
[2019-08-10] MEDS ORDERED: COMMENTS (19:14)
[2019-08-10 22:57] VITALS: BP 130/72
[2019-08-11] MEDS: LORazepam 2 MG TAB PO PRN (01:44)
[2019-08-11 06:45] VITALS: BP 120/71
[2019-08-11] MEDS: NICOTINE 21MG/24HR 1 EA TRANSDERMAL TD SCH (08:02)
--- NOTE | 2019-08-11 11:50 | MHHPEPDOC ---
General Date Of Admission: Aug 10, 2019 Legal Status: 9.39 Chief Complaint "A man has my children and is after me." History of Present Illness HISTORY OF THE PRESENT ILLNESS: Patient is a 49 -year-old , female, with a history of bipolar 1 d/o last admitted 04/20/19 for tonio/psychosis who sent to ED under 9.45 by PD after seen by her therapist at [facility] delusional, disorganized, and paranoid. When pt seen in ED reported as being disorganized, rambling, tangential, hyperverbal, stuttering often. Pt stated in the ED "I don't know why I'm here, but I can't stay b/c there are these bad people trying to get into my apartment." Pt was also very focused on ex- Donnell Velasquez (country star) stating "Darcy Miranda (pt's old friend) got me involved with a man and I didn't know he was my cousin until after we had children" per ED. Pt stated in ED "I need to get out of this hopital, this is where the bad people are and they're after me." She was paranoid with grandiose delusions in the ED. Depakote level 75.1 therapeutic. Psychiatric Review of Systems Depression (2 or more weeks): depressed mood, feelings of worthlesness, difficulty concentrating Tonio (4 or more days of): irritable/elevated mood, expansive mood, grandiosity, decreased need for sleep, still with energy, talkativity, pressured, flight of ideas, distractibility, goal-directed activities Psychosis: auditory hallucination, delusions, paranoia, disorganization Anxiety: stressor related anxiety Anxiety/ 6 months or more of: restlessness, keyed up, difficulty concentrating, irritability, sleep disturbance Past Psychiatric History Previous Psychiatric Diagnosis: bipolar 1 d/o Previous Psychiatric Admissions: hx admissions to [facility] and [facility] with last 04/20/19 with tonio/psychosis Suicide Attempts: denies Psychiatric Follow-up: [facility] Psychiatric medications:olanzapine 15 mg at night, sertraline 50 mg a day. depakote 1,000mg qhs, trazodone 50mg qhs prn insomnia, invega 9mg qhs Past Medical History Medical Problems diabetes and hypertension Head Injury: No Seizures: No Hospitalizations: Yes Surgeries: No Family Medical/Psychiatric HX Medical Problems noncontributory Psychiatric Disorders: No Addiction: No Suicide Attemps/Completions: No Addiction History denies Social History Childhood: Born and raised [facility], mother currently lives in [place] Abuse/Trauma: unknown Current Living Situation: lives alone in [place] Education: high school Employment: disabled Social Support: mother. Legal: none known Marital: single, unknown if ever , unknown if actually has children Mental Status Examination General Appearance: unkempt, disheveled, ds/not appear stated age (older), hospital scubs/clothing Build: overweight Demeanor: withdrawn, preoccupied, other (tearful, psychoretardation) Eye Contact: poor Activity: slowed, anxious, other (tearful, psychoretardation) Behavior: cooperative, withdrawn, other (tearful, psychoretardation) Speech: slow, low in volume, impoverished Mood: depressed, anxious Mood "my meds are too strong for me" and started to cry Affect: constricted, flat, labile, congruent, anxious, disorganized Thought Process: concrete, loose, associative, flight of ideas, depressed, slow Thought Content (Delusions): grandiose, bizarre, paranoia, delusions (errotic regarding country star), other (denies SI/HI) Thought Content (Other): preoccupied, obsessional, phobic, ideas of reference, internal-stimuli, appears paranoid Thought Content (Aggressive): none reported Perception (Hallucinations): auditory Perception (Other): none reported Cognition (Impairment of): memory, attention/concentration, ability to abstract Cognition(Intelligence Est.): average Oriented: Awake, Alert, Oriented times three Insight: poor Judgment: Poor Psychosis: Associations, Abstract Thinking, Psychotic Perceptions Diagnoses Bipolar d/o mre manic with psychosis A-FIB/CHADSVASC A-FIB History Current/History of A-Fib/PAF?: No Current PO Anticoag Therapy: No Assessment Pt seen appear very slow with psychomotor retardation severely, very flat affect, limited attention, talking very slowly in a disorganized fashion just able to state "I think my meds are too strong for me" and started to cry, upset further about missing her snack and reassured it's most likely on her desk next to her be for her. Will hold zyprexa standing for now as pt appears to have gained a significant amount of weight since last admission and decrease invega to 6mg bid, continue depakote 750mg bid. Pt is a very poor historian given her current symptoms. Initial Treatment Plan 1. Patient was admitted on a 939 status. 2. Complete history was obtained. 3. With patients permission, family will be contacted and database will be expanded. 4. Patients medication regimen will be reviewed and changed accordingly. 5. Patient will be provided with protected environment. 6. Patient will be treated with individual, group, and milieu therapies. 7. Patient will receive supportive psych-education. 8. Discharge planning will commence immediately. 9. Outpatient follow-up treatment will be strongly recommended. 10. The initial treatment plan will focus initially on: * Depression. * Risk for suicide. 11. d/c scheduled zyprexa, decrease invega 6mg bid, continue depakote 750mg bid ESTIMATED LENGTH OF STAY: 7-10 DAYS. TIME SPENT COUNSELING AND COORDINATING INITIAL CARE: 60 minutes. Vital Signs Vital Signs Date Time Temp Pulse Resp B/P (MAP) Pulse Ox O2 Delivery O2 Flow Rate FiO2 08/11/19 06:45 97.9 82 14 120/71 (87) Room Air 08/10/19 13:54 98 Laboratory Data 24H Labs Laboratory Tests 2 08/10/19 14:29: Urine Opiates Screen NEGATIVE, Urine Methadone Screen NEGATIVE, Urine Barbitur ates Screen NEGATIVE, Urine Phencyclidine Screen NEGATIVE, Urine Amphetamines Screen NEGATIVE, Urine Benzodiazepines Screen NEGATIVE, Urine Cocaine Metabolite Screen NEGATIVE, Urine Cannabinoids Screen NEGATIVE 08/10/19 14:55: Nucleated Red Blood Cells % (auto) 0.0, Anion Gap 10, Glomerular Filtration Rate > 60.0, Calcium Level 8.8, Total Bilirubin 0.2, Direct Bilirubin < 0.1, Aspartate Amino Transf (AST/SGOT) 17, Alanine Aminotransferase (ALT/SGPT) 27, Alkaline Phosphatase 59, Total Protein 7.5, Albumin 3.4, Albumin/Globulin Ratio 0.83L, Thyroid Stimulating Hormone (TSH) 2.050, Human Chorionic Gonadotropin, Qual NEGATIVE, Salicylates Level < 1.7L, Acetaminophen Level < 2.0L, Valproic Acid (Depakene) Level 75.1, Ethyl Alcohol Level < 0.003 08/10/19 17:40: Bedside Glucose (Misc Panel) 87 CBC/BMP Laboratory Tests 08/10/19 14:55 Medications Scheduled Cetirizine HCl (Cetirizine HCl) 10 Mg Tablet, 10 MG PO QHS, (Reported) PATIENT STATES THIS ALLERGY MEDICATION IS NOT WORKING FOR HER AND WAS INQUIRING ABOUT POSSIBLY SWITCHING TO SOMETHING DIFFERENT Divalproex Sodium (Divalproex Sodium) 250 Mg Tablet.dr, 750 MG PO BID, (Reported) Gabapentin (Gabapentin) 100 Mg Capsule, 200 MG PO TID, (Reported) Losartan Potassium (Losartan Potassium) 25 Mg Tablet, 25 MG PO DAILY, (Reported) Metformin HCl (Metformin HCl) 1,000 Mg Tablet, 1,000 MG PO BID, (Reported) Pantoprazole Sodium (Protonix) 40 Mg Granpkt.dr, 40 MG PO DAILY, (Reported) MIX WITH APPLE SAUCE Pramipexole Di-HCl (Mirapex) 0.125 Mg Tablet, 0.125 MG PO DAILY, (Reported) Risperidone (Risperidone) 1 Mg Tablet, 1 MG PO BID, (Reported) Miscellaneous Medications [Comments] , (Reported) MED LIST COMPILED WITH EXTERNAL MED HISTORY Allergies Coded Allergies: Cola Drinks (Verified Allergy, Intermediate, CARRIES EPI-PEN, DARK COLA PRODUCTS, 05/16/07) Beet (Verified Allergy, Mild, 08/10/19) hives guaifenesin (Verified Adverse Reaction, Mild, 08/10/19) makes her "loopy" ACE CARVALHO DO Aug 11, 2019 11:08 am
[2019-08-11] MEDS: DIVALPROEX 250 MG TAB PO SCH ×2 (12:12→20:15)
[2019-08-11] MEDS: PRAMIPEXOLE (MIRAPEX) 0.125 MG TAB PO SCH (12:12)
[2019-08-11] MEDS: PALIPERIDONE 6 MG ER TAB (INVEGA) PO SCH ×2 (12:13→20:15)
--- NOTE | 2019-08-11 12:15 | HPEPDOC ---
General Date of Admission Aug 10, 2019 at 18:01 Date of Service: Aug 11, 2019 Attending Physician: ALPA CASAS MD Chief Complaint The patient is a 49-year-old female admitted with a reason for visit of Unspecified Psychosis. Source: Patient, RN notes reviewed Exam Limitations: No limitations Timing/Duration: Getting worse Associated Symptoms: Other (psychosis) History of Present Illness 49-year-old woman with a history of hypertension, diabetes, hypercholesterolemia, chronic constipation, schizophrenia with prior [facility] admissions for saleem psychosis who was recommended for [facility] admission per her outpatient mental health provider when she went in for a scheduled visit and found to be in saleem psychosis with paranoid delusions, disorganized thought process and content. In the ED, she was hemodynamically stable and CBC, BMP and urine tox were unrevealing and she was admitted to the [facility] for psychiatric evaluation and optimization, and medicine was consulted for physical examination and recommendations for management of her chronic medical problems. At present, Ms. Robb does not have acute physical complaints and denies physical pain, fevers, chills or recent physical trauma history. Her diabetes is treated with metformin and she denies recent polyphagia, polyuria or recent weight loss. She otherwise exhibits the previously reported paranoid delusions about bad people being in this hospital and they want to cause her harm and should thus not be here. Home Medications Scheduled Cetirizine HCl (Cetirizine HCl) 10 Mg Tablet, 10 MG PO QHS, (Reported) PATIENT STATES THIS ALLERGY MEDICATION IS NOT WORKING FOR HER AND WAS INQUIRING ABOUT POSSIBLY SWITCHING TO SOMETHING DIFFERENT Divalproex Sodium (Divalproex Sodium) 250 Mg Tablet.dr, 750 MG PO BID, (Reported) Gabapentin (Gabapentin) 100 Mg Capsule, 200 MG PO TID, (Reported) Losartan Potassium (Losartan Potassium) 25 Mg Tablet, 25 MG PO DAILY, (Reported) Metformin HCl (Metformin HCl) 1,000 Mg Tablet, 1,000 MG PO BID, (Reported) Pantoprazole Sodium (Protonix) 40 Mg Granpkt.dr, 40 MG PO DAILY, (Reported) MIX WITH APPLE SAUCE Pramipexole Di-HCl (Mirapex) 0.125 Mg Tablet, 0.125 MG PO DAILY, (Reported) Risperidone (Risperidone) 1 Mg Tablet, 1 MG PO BID, (Reported) Miscellaneous Medications [Comments] , (Reported) MED LIST COMPILED WITH EXTERNAL MED HISTORY Allergies Coded Allergies: Cola Drinks (Verified Allergy, Intermediate, CARRIES EPI-PEN, DARK COLA PRODUCTS, 05/16/07) Beet (Verified Allergy, Mild, 08/10/19) hivrasheeda guaifenesin (Verified Adverse Reaction, Mild, 08/10/19) makes her "loopy" Past Medical History Medical History 1. Hypertension. 2. Diabetes. 3. Hypercholesterolemia. 4. Morbid obesity, body mass index (BMI) of 45.3 5. Metabolic syndrome. 6. Right ankle injury. 7. Psychosis. 8. Allergic rhinitis. Surgical History Tonsillectomy at the age of 89 years old. Family History Mother has hypertension, father has coronary artery disease. 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 Currently unemployed. Smokes one to two cigarettes a day. Has alcohol binges with her friends. Denies any recreational drug use A-FIB/CHADSVASC A-FIB History Current/History of A-Fib/PAF?: No Current PO Anticoag Therapy: No Age/Risk Factor Scoring CHADSVASC: CHADSVASC Response (Comments) Value Age Risk Factor Age < 65 years old 0 Gender Risk Factor Female 1 Hx of CHF No 0 Hx of HTN Yes 1 Hx of Stroke/TIA/or VTE No 0 Hx of Diabetes Yes 1 Hx of Vascular Disease No 0 Total 3 Treatment Treatment ordered: NONE Reason Anticoagulant not given: Not indicated/[id number] Review of Systems Constitutional: Denies: Chills, Fever, Night Sweats Eyes: Denies: Pain, Vision change ENT: Reports: Head Aches (ongoing headache right now. ); Denies: Ear Pain, Dysphagia Skin: Denies: Rash, Lesions, Breakdown Pulmonary: Denies: Dyspnea, Cough Cardiovascular: Denies: Chest Pain, Palpitations, Orthopnea, Paroxysmal Noc. Dyspnea, Lt Headedness Gastrointestinal: Denies: Nausea, Vomiting, Abdominal Pain, Diarrhea Genitourinary: Denies: Dysuria, Frequency, Incontinence, Retention Hematologic: Denies: Bruising, Bleeding Excessively Endocrine: Denies: Polydipsia, Polyphagia, Polyuria, Heat Intolerance, Cold Intolerance, Other Endocrine Sx Musculoskeletal: Denies: Neck Pain, Back Pain, Joint Pain, Muscle Pain, Spasms Neurological: Denies: Weakness, Numbness, Change in speech, Confusion Psych: Reports: Anxiety, Depression Physical Examination General Exam: Positive: Alert, No Acute Distress, Other (Morbidly obese. Has ongoing headache, requesting for light to be turned off, with towel on her forehead. Otherwise cooperative.) Eye Exam: Positive: PERRLA, Conjunctiva & lids normal, EOMI; Negative: Sclera icteric ENT Exam: Positive: Atraumatic, Mucous membr. moist/pink, Pharynx Normal Neck Exam: Positive: Supple; Negative: JVD, thyromegaly Chest Exam: Positive: Clear to auscultation, Normal air movement Heart Exam: Positive: Rate Normal, Regular Rhythm, Normal S1, Normal S2; Negative: Murmurs, Rubs Abdomen Exam: Positive: Normal bowel sounds, Soft, Other (obese); Negative: Tenderness, Hepatospenomegaly Extremity Exam: Positive: Normal pulses; Negative: Clubbing, Cyanosis, Edema Skin Exam: Positive: Nl turgor and temperature; Negative: Breakdown, Lesion Neuro Exam: Positive: Normal Gait, Normal Speech, Cranial Nerves 3-12 NL, Reflexes 2+ Psych Exam: Positive: Anxiety; Negative: Mood NL (Depressed, flat, nervous) Vital Signs Vital Signs Date Time Temp Pulse Resp B/P (MAP) Pulse Ox O2 Delivery O2 Flow Rate FiO2 08/11/19 06:45 97.9 82 14 120/71 (87) Room Air 08/10/19 13:54 98 Laboratory Data Labs 24H Laboratory Tests 2 08/10/19 14:29: Urine Opiates Screen NEGATIVE, Urine Methadone Screen NEGATIVE, Urine Barbit urates Screen NEGATIVE, Urine Phencyclidine Screen NEGATIVE, Urine Amphetamines Screen NEGATIVE, Urine Benzodiazepines Screen NEGATIVE, Urine Cocaine Metabolite Screen NEGATIVE, Urine Cannabinoids Screen NEGATIVE 08/10/19 14:55: Nucleated Red Blood Cells % (auto) 0.0, Anion Gap 10, Glomerular Filtration Rate > 60.0, Calcium Level 8.8, Total Bilirubin 0.2, Direct Bilirubin < 0.1, Aspartate Amino Transf (AST/SGOT) 17, Alanine Aminotransferase (ALT/SGPT) 27, Alkaline Phosphatase 59, Total Protein 7.5, Albumin 3.4, Albumin/Globulin Ratio 0.83L, Thyroid Stimulating Hormone (TSH) 2.050, Human Chorionic Gonadotropin, Qual NEGATIVE, Salicylates Level < 1.7L, Acetaminophen Level < 2.0L, Valproic Acid (Depakene) Level 75.1, Ethyl Alcohol Level < 0.003 08/10/19 17:40: Bedside Glucose (Misc Panel) 87 CBC/BMP Laboratory Tests 08/10/19 14:55 Assessment/Plan 49-year-old woman with a history of hypertension, diabetes, hyperc holesterolemia, chronic constipation, schizophrenia with prior admission to [facility] for psychosis who is admitted to the [facility] for saleem psychosis. Plan: 1. Psychosis. With a known history of schizophrenia and history of prior admissions -Managed by primary team, psychiatrist. 2. Hypertension. -Patient has been resumed on her home dose of losartan and amlodipine 3. Type 2 diabetes. -Has been resumed on metformin. -OK to maintain on regular, it is likely what she eats as an outpatient. 4. Active tobacco smoking. -Currently on nicotine patch. -Tobacco cessation counseling has bene provided, without much success owing to saleem psychosis at this time. 5. Depression: -Being managed by psychiatry at this time 6. Chronic constipation: -on milk of mag PRN 7. Ongoing headache: -has PRN tylenol but reports that usually ibuprofen works well, so will order 600 TID PRN for severe pain 8. Allergic rhinitis: -continue home cetirizine Medicine will sign off at this time. Please reconsult if medical concerns develop. Thank you. Plan / VTE VTE Prophylaxis Ordered?: No VTE Exclusion Mechanical Proph: Low Risk for VTE VTE Exclusion Pharmacological: At Low Risk for VTE ALPA CASAS MD Aug 11, 2019 12:15
[2019-08-11] MEDS: LOSARTAN 25 MG TAB PO SCH (12:33)
[2019-08-11] MEDS ORDERED: IBUPROFEN 600 MG TAB PO PRN (14:30)
[2019-08-11] MEDS: GABAPENTIN 100 MG CAP PO SCH ×2 (16:06→20:15)
[2019-08-11 16:56] VITALS: BP 128/67
[2019-08-11] MEDS: metFORMIN (GLUCOPHAGE) 1000 MG TABLET PO SCH (17:01)
[2019-08-11] MEDS: CETIRIZINE (ZyrTEC) 10 MG TAB PO SCH (20:15)
[2019-08-12 06:45] VITALS: BP 121/69
[2019-08-12] MEDS: metFORMIN (GLUCOPHAGE) 1000 MG TABLET PO SCH ×2 (07:53→17:01)
[2019-08-12] MEDS: DIVALPROEX 250 MG TAB PO SCH ×2 (09:11→20:11)
[2019-08-12] MEDS: LOSARTAN 25 MG TAB PO SCH (09:11)
[2019-08-12] MEDS: GABAPENTIN 100 MG CAP PO SCH ×3 (09:11→20:11)
[2019-08-12] MEDS: PALIPERIDONE 6 MG ER TAB (INVEGA) PO SCH ×2 (09:11→20:13)
[2019-08-12] MEDS: NICOTINE 21MG/24HR 1 EA TRANSDERMAL TD SCH (09:12)
[2019-08-12] MEDS: PRAMIPEXOLE (MIRAPEX) 0.125 MG TAB PO SCH (09:12)
[2019-08-12] MEDS: OLANZapine ORAL DISINTEGRATING TAB 5MG PO PRN (09:23)
[2019-08-12] MEDS: NITROFURANTOIN (MACROBID) 100 MG CAP PO SCH ×2 (09:47→20:12)
--- NOTE | 2019-08-12 10:02 | MHIPNPDOC ---
[facility] Progress Note Progress Note DATE OF SERVICE: 08/12/19 HISTORY: Patient is a 49 -year-old , female, with a history of bipolar 1 d/o last admitted 04/20/19 for tonio/psychosis who sent to ED under 9.45 by PD after seen by her therapist at [facility] delusional, disorganized, and paranoid. When pt seen in ED reported as being disorganized, rambling, tangential, hyperverbal, stuttering often. Pt stated in the ED "I don't know why I'm here, but I can't stay b/c there are these bad people trying to get into my apartment." Pt was also very focused on ex- Donnell Velasquez (country star) stating "Darcy Miranda (pt's old friend) got me involved with a man and I didn't know he was my cousin until after we had children" per ED. Pt stated in ED "I need to get out of this hopital, this is where the bad people are and they're after me." She was paranoid with grandiose delusions in the ED. Depakote level 75.1 therapeutic. Pt seen appear very slow with psychomotor retardation severely, very flat affect, limited attention, talking very slowly in a disorganized fashion just able to state "I think my meds are too strong for me" and started to cry, upset further about missing her snack and reassured it's most likely on her desk next to her be for her. Will hold zyprexa standing for now as pt appears to have gained a significant amount of weight since last admission and decrease invega to 6mg bid, continue depakote 750mg bid. Pt is a very poor historian given her current symptoms. VITAL SIGNS: See below. NEW TEST RESULTS: See below. CURRENT MEDICATIONS: See below. MENTAL STATUS EXAMINATION: General Appearance: unkempt, disheveled, ds/not appear stated age (older), hospital scrubs/clothing Build: overweight Demeanor: withdrawn, preoccupied, other (tearful, psychomotor retardation) Eye Contact: poor Activity: slowed, anxious, other (tearful, psychomotor retardation) Behavior: cooperative, withdrawn, other (tearful, psychomotor retardation) Speech: slow, low in volume, impoverished Mood: depressed, anxious Mood "bad" Affect: constricted, flat, labile, congruent, anxious, disorganized Thought Process: concrete, loose, associative, flight of ideas, depressed, slow Thought Content (Delusions): grandiose, bizarre, paranoia, delusions (erotic regarding country star), other (denies SI/HI) Thought Content (Other): preoccupied, obsessional, phobic, ideas of reference, internal-stimuli, appears paranoid Thought Content (Aggressive): none reported Perception (Hallucinations): auditory Perception (Other): none reported Cognition (Impairment of): memory, attention/concentration, ability to abstract Cognition(Intelligence Est.): average Oriented: Awake, Alert, Oriented times three Insight: poor Judgment: Poor Psychosis: Associations, Abstract Thinking, Psychotic Perceptions DIAGNOSES: Bipolar d/o mre manic with psychosis ASSESSMENT:Pt seen in her room appearing depressed with psychomotor retardation. She pointed to the depends underwear on her desk by her bad and began to cry stating "what are these." Asked it she's have some urine incontinence and nodded her head "yes" so explained to pt that the depends are there to help her with that and to put them on in the bathroom which she nodded she would. States she knows where she is and why when asked. States she still feels "bad". States she slept well last night. Feels she is tolerating her medications but feels they make be making her worse. She is attending some groups and finding them helpful. Pt feels safe here. MANAGEMENT PLAN: fasting cmp and lipids, HBa1c invega 6mg bid depakote 750mg bid TIME SPENT: 30 minutes. Vital Signs Vital Signs Date Time Temp Pulse Resp B/P (MAP) Pulse Ox O2 Delivery O2 Flow Rate FiO2 08/12/19 09:11 112/76 08/12/19 06:45 97.4 80 14 Room Air 08/10/19 13:54 98 Laboratory Data 24H Labs Laboratory Tests 2 08/11/19 16:57: Bedside Glucose (Misc Panel) 153H 08/11/19 18:45: Urine Color YELLOW, Urine Appearance HAZY, Urine pH 6.0, Urine Specific [place] 1.023, Urine Protein NEGATIVE, Urine Glucose (UA) NEGATIVE, Urine Ketones TRACEH, Urine Blood NEGATIVE, Urine Nitrite NEGATIVE, Urine Bilirubin NEGATIVE, Urine Urobilinogen 0.2, Urine Leukocyte Esterase NEGATIVE, Urine WBC (Auto) 2, Urine RBC (Auto) 0, Urine Hyaline Casts (Auto) 0, Urine Bacteria (Auto) 1+H, Urine Squamous Epithelial Cells 3, Urine Mucus (Auto) SMALL, Urine Sperm (Auto) 08/11/19 20:12: Bedside Glucose (Misc Panel) 108H 08/12/19 06:12: Bedside Glucose (Misc Panel) 104 Current Medications Current Medications Medications (Trade) Dose Ordered Sig/Breezy Route PRN Reason Start Time Stop Time Status Last Admin Dose Admin Acetaminophen (Tylenol Tab) 650 mg Q6HP PRN PO HEADACHE or DISCOMFORT 08/10/19 18:15 Al Hydrox/Mg Hydrox/Simethicone (Mylanta) 30 ml Q4HP PRN PO HEARTBURN/INDIGESTION 08/10/19 18:15 Cetirizine HCl (ZyrTEC) 10 mg QHS PO 08/11/19 21:00 08/11/19 20:15 Divalproex Sodium (Depakote) 750 mg BID PO 08/11/19 09:00 08/12/19 09:11 Gabapentin (Neurontin) 200 mg TID PO 08/11/19 16:00 08/12/19 09:11 Home Med (Med Rec Complete!) ASDIRECTED XX 08/10/19 19:15 08/10/19 19:17 DC Ibuprofen (Advil) 600 mg Q8HP PRN PO severe pain 08/11/19 14:30 Lorazepam (Ativan) 2 mg Q4HP PRN PO ANXIETY/AGITATION 08/10/19 18:15 08/11/19 01:44 Losartan Potassium (Cozaar) 25 mg DAILY PO 08/11/19 09:00 08/12/19 09:11 Magnesium Hydroxide (Milk Of Magnesia) 30 ml DAILYPRN PRN PO CONSTIPATION 08/10/19 18:15 Metformin HCl (Glucophage) 1,000 mg BIDWM PO 08/11/19 18:00 08/12/19 07:53 Nicotine (Nicoderm Cq 21mg) 1 patch DAILY TD 08/11/19 09:00 08/12/19 09:12 Nitrofurantoin Monoh/Nitrofur Macro (Macrobid) 100 mg BID PO 08/12/19 09:00 08/17/19 09:00 Olanzapine (ZyPREXA ZYDIS) 10 mg Q4HP PRN PO ANXIETY/AGITATION 08/10/19 18:15 08/12/19 09:23 Paliperidone (Invega) 6 mg BID PO 08/11/19 09:00 08/12/19 09:11 Pramipexole Dihydrochloride (Mirapex) 0.125 mg DAILY PO 08/11/19 09:00 08/12/19 09:12 Trazodone HCl (Desyrel) 50 mg QHSP PRN PO INSOMNIA 08/10/19 18:15 Allergies Coded Allergies: Cola Drinks (Verified Allergy, Intermediate, CARRIES EPI-PEN, DARK COLA PRODUCTS, 05/16/07) Beet (Verified Allergy, Mild, 08/10/19) hives guaifenesin (Verified Adverse Reaction, Mild, 08/10/19) makes her "loopy" ACE CARVALHO DO Aug 12, 2019 10:02
[2019-08-12 10:47] LABS: ALBUMIN 3.2 GM/DL (3.2-5.2); ALT/SGPT 31 U/L (12-78); BILIRUBIN,TOTAL 0.1 MG/DL (0.2-1.0); BLOOD UREA NITROGEN 14 MG/DL (7-18); CALCIUM LEVEL 8.6 MG/DL (8.5-10.1); CARBON DIOXIDE LEVEL 28 MEQ/L (21-32); CHLORIDE LEVEL 107 MEQ/L (98-107); CHOLESTEROL LEVEL 117 MG/DL (<200); CHOLESTEROL RISK RATIO 3.545 (<5); CREATININE FOR GFR 0.78 MG/DL (0.55-1.30); GLOMERULAR FILTRATION RATE > 60.0 (>58); GLUCOSE, FASTING 98 MG/DL (70-100); HDL CHOLESTEROL 33 MG/DL (>40); HEMOGLOBIN A1c 6.2 %; LDL CHOLESTEROL 60 MG/DL (<100); NON-HDL-C 84 MG/DL; POTASSIUM SERUM 4.2 MEQ/L (3.5-5.1); SODIUM LEVEL 142 MEQ/L (136-145); TOTAL PROTEIN 7.3 GM/DL (6.4-8.2); TRIGLYCERIDES LEVEL 118 MG/DL (<150)
[2019-08-12 16:20] VITALS: BP 128/80
[2019-08-12] MEDS: CETIRIZINE (ZyrTEC) 10 MG TAB PO SCH (20:11)
[2019-08-13 06:50] VITALS: BP 123/71
--- NOTE | 2019-08-13 06:53 | MHIPNPDOC ---
[facility] Progress Note Progress Note Inpatient Progress Note Michelle Robb MRN: N/A Date of : N/A Date of Service: 08/13/2019 History of Present Illness The patient, a 49-year-old woman with a history of intellectual disabilities and schizophrenia presents paranoid and reportedly psychotic, gravely disabled. She is admitted in order to treat her psychosis. She's had multiple admissions in the past. Interval History The patient is met with today, however, she appears completely fixated on paranoid ideation about men and reports that she is afraid of people that are "trying to get her." She is unable to engage in any appreciable interview other than to deny any side effects from her current medication. She has been unable to engage in meaningful one-to-one due to her psychosis and impairment. She's has had no major behavioral problems although she generally paces up and down the hallway. Review Of Systems Unable to participate fully due to mental status. Psychotherapy None on this visit. Vital Signs Reviewed. Mental Status Examination General: Fair hygiene Speech: Pressured Thought processes: Tangential MSK: Smooth and coordinated gait, no signs of tremors or involuntary orofacial movements Thought content: Bizarre and paranoid Abstract reasoning, and computation: Impaired Description of associations: Impaired Description of abnormal or psychotic thoughts: Significant paranoid ideation about others trying to get her Judgment: Impaired Insight: Impaired Orientation: Alert and orientated 3 Cognition: Some slowing, possibly consistent with low baseline IQ Recent and remote memory: Grossly intact Attention span and concentration: Impaired secondary to thought process Fund of knowledge: Unable to determine at this time Mood: "scared" Affect: Anxious with a constricted range Diagnoses Unspecified psychotic disorder. Intellectual disabilities, moderate to severe. Assessment and Plan Unspecified psychotic disorder: Continue Invega 6 mg BID and Depakote 750 mg which have done well for the patient, possibly schizoaffective versus schizophrenia. Intellectual disabilities: IQ testing has been already done indicating moderate to severe difficulties connected with OPWDD and support services, appears patient has difficulty with compliance. Disposition The patient will need further inpatient admission in order to treat her severe paranoia and psychosis that pose a danger to her and her ability to care for herself leaving her gravely disabled. Time Spent 15 minutes Tuesday Vital Signs Vital Signs Date Time Temp Pulse Resp B/P (MAP) Pulse Ox O2 Delivery O2 Flow Rate FiO2 08/13/19 06:50 97.4 82 14 123/71 (88) Room Air 08/10/19 13:54 98 Laboratory Data 24H Labs Laboratory Tests 2 08/12/19 10:10: Anion Gap 7L, Glomerular Filtration Rate > 60.0, Estimated Mean Plasma Glucose 131H, Hemoglobin A1c 6.2, Calcium Level 8.6, Total Bilirubin 0.1L, Aspartate Amino Transf (AST/SGOT) 25, Alanine Aminotransferase (ALT/SGPT) 31, Alkaline Phosphatase 54, Total Protein 7.3, Albumin 3.2, Albumin/Globulin Ratio 0.78L, Triglycerides Level 118, Total Cholesterol 117, LDL Cholesterol 60, Non-HDL Cho lesterol (LDL + VLDL) 84, Total HDL Cholesterol 33L, Cholesterol/HDL Ratio 3.545 08/12/19 16:55: Bedside Glucose (Misc Panel) 92 08/13/19 05:57: Bedside Glucose (Misc Panel) 85 CBC/BMP Laboratory Tests 08/12/19 10:10 Current Medications Current Medications Medications (Trade) Dose Ordered Sig/Breezy Route PRN Reason Start Time Stop Time Status Last Admin Dose Admin Acetaminophen (Tylenol Tab) 650 mg Q6HP PRN PO HEADACHE or DISCOMFORT 08/10/19 18:15 Al Hydrox/Mg Hydrox/Simethicone (Mylanta) 30 ml Q4HP PRN PO HEARTBURN/INDIGESTION 08/10/19 18:15 Cetirizine HCl (ZyrTEC) 10 mg QHS PO 08/11/19 21:00 08/12/19 20:11 Divalproex Sodium (Depakote) 750 mg BID PO 08/11/19 09:00 08/12/19 20:11 Gabapentin (Neurontin) 200 mg TID PO 08/11/19 16:00 08/12/19 20:11 Home Med (Med Rec Complete!) ASDIRECTED XX 08/10/19 19:15 08/10/19 19:17 DC Ibuprofen (Advil) 600 mg Q8HP PRN PO severe pain 08/11/19 14:30 08/12/19 20:27 Lorazepam (Ativan) 2 mg Q4HP PRN PO ANXIETY/AGITATION 08/10/19 18:15 08/11/19 01:44 Losartan Potassium (Cozaar) 25 mg DAILY PO 08/11/19 09:00 08/12/19 09:11 Magnesium Hydroxide (Milk Of Magnesia) 30 ml DAILYPRN PRN PO CONSTIPATION 08/10/19 18:15 Metformin HCl (Glucophage) 1,000 mg BIDWM PO 08/11/19 18:00 08/12/19 17:01 Nicotine (Nicoderm Cq 21mg) 1 patch DAILY TD 08/11/19 09:00 08/12/19 09:12 Nitrofurantoin Monoh/Nitrofur Macro (Macrobid) 100 mg BID PO 08/12/19 09:00 08/17/19 09:00 08/12/19 20:12 Olanzapine (ZyPREXA ZYDIS) 10 mg Q4HP PRN PO ANXIETY/AGITATION 08/10/19 18:15 08/12/19 09:23 Paliperidone (Invega) 6 mg BID PO 08/11/19 09:00 08/12/19 20:13 Pramipexole Dihydrochloride (Mirapex) 0.125 mg DAILY PO 08/11/19 09:00 08/12/19 09:12 Trazodone HCl (Desyrel) 50 mg QHSP PRN PO INSOMNIA 08/10/19 18:15 Allergies Coded Allergies: Cola Drinks (Verified Allergy, Intermediate, CARRIES EPI-PEN, DARK COLA PRODUCTS, 05/16/07) Beet (Verified Allergy, Mild, 08/10/19) hives guaifenesin (Verified Adverse Reaction, Mild, 08/10/19) makes her "loopy" TERESA RAIN DO Aug 13, 2019 06:53
[2019-08-13] MEDS: metFORMIN (GLUCOPHAGE) 1000 MG TABLET PO SCH ×2 (08:04→17:44)
[2019-08-13] MEDS: PALIPERIDONE 6 MG ER TAB (INVEGA) PO SCH ×2 (08:20→20:18)
[2019-08-13] MEDS: NICOTINE 21MG/24HR 1 EA TRANSDERMAL TD SCH (08:20)
[2019-08-13] MEDS: GABAPENTIN 100 MG CAP PO SCH ×3 (08:21→20:18)
[2019-08-13] MEDS: PRAMIPEXOLE (MIRAPEX) 0.125 MG TAB PO SCH (08:21)
[2019-08-13] MEDS: NITROFURANTOIN (MACROBID) 100 MG CAP PO SCH ×2 (08:21→20:18)
[2019-08-13] MEDS: DIVALPROEX 250 MG TAB PO SCH ×2 (08:27→20:18)
[2019-08-13] MEDS: LOSARTAN 25 MG TAB PO SCH (08:29)
[2019-08-13 17:04] VITALS: BP 127/60
[2019-08-13] MEDS: CETIRIZINE (ZyrTEC) 10 MG TAB PO SCH (20:17)
[2019-08-13] MEDS: traZODone 50 MG TAB PO PRN (20:18)
[2019-08-14 07:10] VITALS: BP 136/86
[2019-08-14] MEDS: NICOTINE 21MG/24HR 1 EA TRANSDERMAL TD SCH (08:15)
[2019-08-14] MEDS: NITROFURANTOIN (MACROBID) 100 MG CAP PO SCH ×2 (08:19→20:23)
[2019-08-14] MEDS: LOSARTAN 25 MG TAB PO SCH (08:19)
[2019-08-14] MEDS: PALIPERIDONE 6 MG ER TAB (INVEGA) PO SCH (08:19)
[2019-08-14] MEDS: GABAPENTIN 100 MG CAP PO SCH ×3 (08:19→20:23)
[2019-08-14] MEDS: metFORMIN (GLUCOPHAGE) 1000 MG TABLET PO SCH ×2 (08:19→17:10)
[2019-08-14] MEDS: DIVALPROEX 250 MG TAB PO SCH ×2 (08:20→20:23)
--- NOTE | 2019-08-14 09:50 | MHIPNPDOC ---
[facility] Progress Note Progress Note Inpatient Progress Note Michelle Robb MRN: N/A Date of : N/A Date of Service: 08/14/2019 History of Present Illness The patient, a 49-year-old woman with a history of intellectual disabilities and schizophrenia presents paranoid and reportedly psychotic, gravely disabled. She is admitted in order to treat her psychosis. She's had multiple admissions in the past. Interval History The patient is met with today. She is still quite disturbed and psychotic, unable to contribute anything to the discussion. She reports that she is unsure about her medications and continues to be talking about various things that are frightening to her such that she feels people are out to get her and that she is currently being hunted by various people. The patient has attended groups at times, but has not been participating. She is needy, but appears quite paranoid. The patient has a reported history of intellectual disability with an unknown baseline to this provider at this time. She has recently left [place] almost 2 weeks ago. Review Of Systems Unable to participate due to patient's mental status. Psychotherapy None on this visit. Vital Signs Reviewed. Mental Status Examination General: Fair hygiene Speech: Pressured Thought processes: Tangential MSK: Smooth and coordinated gait, no signs of tremors or involuntary orofacial movements Thought content: Bizarre and paranoid Abstract reasoning, and computation: Impaired Description of associations: Impaired Description of abnormal or psychotic thoughts: Significant paranoid ideation about others trying to get her Judgment: Impaired Insight: Impaired Orientation: Alert and orientated 3 Cognition: Some slowing, possibly consistent with low baseline IQ Recent and remote memory: Grossly intact Attention span and concentration: Impaired secondary to thought process Fund of knowledge: Unable to determine at this time Mood: "scared" Affect: Anxious with a constricted range Diagnoses Unspecified psychotic disorder. Intellectual disabilities, moderate to severe. Assessment and Plan Unspecified psychotic disorder: Discontinue Invega. Continue Depakote. Start Clozaril 25 mg nightly. ANC normal. Attempted to discuss risks and benefits with patient as well as stability. Patient has failed multiple antipsychotics and very long-term hospitalization. Intellectual disabilities: IQ testing has been already done indicating moderate to severe difficulties connected with OPWDD and support services, appears patient has difficulty with compliance. Disposition The patient will need a further inpatient admission in order to treat her significantly impairing psychosis and paranoia and to further ascertain what her baseline is. Time Spent 15 minutes [id number]. Tuesday Vital Signs Vital Signs Date Time Temp Pulse Resp B/P (MAP) Pulse Ox O2 Delivery O2 Flow Rate FiO2 08/14/19 08:19 134/77 08/14/19 07:10 97.8 89 16 08/13/19 06:50 Room Air 08/10/19 13:54 98 Laboratory Data 24H Labs Laboratory Tests 2 08/13/19 12:21: Bedside Glucose (Misc Panel) 94 08/13/19 17:30: Bedside Glucose (Misc Panel) 89 08/14/19 05:25: Bedside Glucose (Misc Panel) 96 Current Medications Current Medications Medications (Trade) Dose Ordered Sig/Breezy Route PRN Reason Start Time Stop Time Status Last Admin Dose Admin Acetaminophen (Tylenol Tab) 650 mg Q6HP PRN PO HEADACHE or DISCOMFORT 08/10/19 18:15 08/13/19 20:18 Al Hydrox/Mg Hydrox/Simethicone (Mylanta) 30 ml Q4HP PRN PO HEARTBURN/INDIGESTION 08/10/19 18:15 Cetirizine HCl (ZyrTEC) 10 mg QHS PO 08/11/19 21:00 08/13/19 20:17 Divalproex Sodium (Depakote) 750 mg BID PO 08/11/19 09:00 08/14/19 08:20 Gabapentin (Neurontin) 200 mg TID PO 08/11/19 16:00 08/14/19 08:19 Home Med (Med Rec Complete!) ASDIRECTED XX 08/10/19 19:15 08/10/19 19:17 DC Ibuprofen (Advil) 600 mg Q8HP PRN PO severe pain 08/11/19 14:30 08/12/19 20:27 Lorazepam (Ativan) 2 mg Q4HP PRN PO ANXIETY/AGITATION 08/10/19 18:15 08/11/19 01:44 Losartan Potassium (Cozaar) 25 mg DAILY PO 08/11/19 09:00 08/14/19 08:19 Magnesium Hydroxide (Milk Of Magnesia) 30 ml DAILYPRN PRN PO CONSTIPATION 08/10/19 18:15 08/14/19 01:06 Metformin HCl (Glucophage) 1,000 mg BIDWM PO 08/11/19 18:00 08/14/19 08:19 Nicotine (Nicoderm Cq 21mg) 1 patch DAILY TD 08/11/19 09:00 08/13/19 08:20 Nitrofurantoin Monoh/Nitrofur Macro (Macrobid) 100 mg BID PO 08/12/19 09:00 08/17/19 09:00 08/14/19 08:19 Olanzapine (ZyPREXA ZYDIS) 10 mg Q4HP PRN PO ANXIETY/AGITATION 08/10/19 18:15 08/12/19 09:23 Paliperidone (Invega) 6 mg BID PO 08/11/19 09:00 08/14/19 08:19 Pramipexole Dihydrochloride (Mirapex) 0.125 mg DAILY PO 08/11/19 09:00 08/13/19 10:07 DC 08/13/19 08:21 Trazodone HCl (Desyrel) 50 mg QHSP PRN PO INSOMNIA 08/10/19 18:15 08/13/19 20:18 Allergies Coded Allergies: Cola Drinks (Verified Allergy, Intermediate, CARRIES EPI-PEN, DARK [employer]A PRODUCTS, 05/16/07) Beet (Verified Allergy, Mild, 08/10/19) hives guaifenesin (Verified Adverse Reaction, Mild, 08/10/19) makes her "loopy" TERESA RAIN DO Aug 14, 2019 09:50
[2019-08-14 15:49] VITALS: BP 159/68
[2019-08-14] MEDS: cloZAPine 25 MG TAB (S0136) PO SCH (20:21)
[2019-08-14] MEDS: CETIRIZINE (ZyrTEC) 10 MG TAB PO SCH (20:21)
[2019-08-14] MEDS: LORazepam 2 MG TAB PO PRN (20:23)
[2019-08-14] MEDS: traZODone 50 MG TAB PO PRN (20:24)
[2019-08-14] MEDS: OLANZapine ORAL DISINTEGRATING TAB 5MG PO PRN (20:25)
[2019-08-15 06:56] VITALS: BP 121/61
--- NOTE | 2019-08-15 08:08 | MHIPNPDOC ---
[facility] Progress Note Progress Note Inpatient Progress Note Michelle Robb MRN: N/A Date of : N/A Date of Service: 08/15/2019 History of Present Illness The patient, a 49-year-old woman with a history of intellectual disabilities and schizophrenia presents paranoid and reportedly psychotic, gravely disabled. She is admitted in order to treat her psychosis. She's had multiple admissions in the past. Interval History The patient is met with, however, she is still fairly psychotic, unable to engage in any meaningful interview, still paranoid about people coming to go "get her." She reports no problems from the clozapine, appears still highly unable to engage with any meaningful discussions. No major behavioral problems, has attending groups at times, needs significant prompting for ADLs. Review Of Systems Unable to ascertain due to severe disorder. Psychotherapy None on this visit. Vital Signs Reviewed. Mental Status Examination General: Fair hygiene Speech: Pressured Thought processes: Tangential MSK: Smooth and coordinated gait, no signs of tremors or involuntary orofacial movements Thought content: Bizarre and paranoid Abstract reasoning, and computation: Impaired Description of associations: Impaired Description of abnormal or psychotic thoughts: Significant paranoid ideation about others trying to get her Judgment: Impaired Insight: Impaired Orientation: Alert and orientated 3 Cognition: Some slowing, possibly consistent with low baseline IQ Recent and remote memory: Grossly intact Attention span and concentration: Impaired secondary to thought process Fund of knowledge: Unable to determine at this time Mood: "scared" Affect: Anxious with a constricted range Diagnoses Unspecified psychotic disorder. Intellectual disabilities, moderate to severe. Assessment and Plan Unspecified psychotic disorder: Continue Clozaril 25 mg nightly, and she is currently normal. Intellectual disabilities: IQ testing has been already done indicating moderate to severe difficulties connected with OPWDD and support services, appears patient has difficulty with compliance. Disposition The patient will need a further inpatient admission in order to treat her significantly impairing psychosis and paranoia and to further ascertain what her baseline is. Time Spent 15 minutes. Tuesday Vital Signs Vital Signs Date Time Temp Pulse Resp B/P (MAP) Pulse Ox O2 Delivery O2 Flow Rate FiO2 08/15/19 06:56 97.2 81 14 121/61 (81) 08/13/19 06:50 Room Air 08/10/19 13:54 98 Laboratory Data 24H Labs Laboratory Tests 2 08/14/19 17:06: Bedside Glucose (Misc Panel) 139H 08/15/19 05:57: Bedside Glucose (Misc Panel) 106H Current Medications Current Medications Medications (Trade) Dose Ordered Sig/Breezy Route PRN Reason Start Time Stop Time Status Last Admin Dose Admin Acetaminophen (Tylenol Tab) 650 mg Q6HP PRN PO HEADACHE or DISCOMFORT 08/10/19 18:15 08/13/19 20:18 Al Hydrox/Mg Hydrox/Simethicone (Mylanta) 30 ml Q4HP PRN PO HEARTBURN/INDIGESTION 08/10/19 18:15 Cetirizine HCl (ZyrTEC) 10 mg QHS PO 08/11/19 21:00 08/14/19 20:21 Clozapine (Clozaril) 25 mg QHS PO 08/14/19 21:00 08/14/19 20:21 Divalproex Sodium (Depakote) 750 mg BID PO 08/11/19 09:00 08/14/19 20:23 Gabapentin (Neurontin) 200 mg TID PO 08/11/19 16:00 08/14/19 20:23 Home Med (Med Rec Complete!) ASDIRECTED XX 08/10/19 19:15 08/10/19 19:17 DC Ibuprofen (Advil) 600 mg Q8HP PRN PO severe pain 08/11/19 14:30 08/12/19 20:27 Lorazepam (Ativan) 2 mg Q4HP PRN PO ANXIETY/AGITATION 08/10/19 18:15 08/14/19 20:23 Losartan Potassium (Cozaar) 25 mg DAILY PO 08/11/19 09:00 08/14/19 08:19 Magnesium Hydroxide (Milk Of Magnesia) 30 ml DAILYPRN PRN PO CONSTIPATION 08/10/19 18:15 08/14/19 01:06 Metformin HCl (Glucophage) 1,000 mg BIDWM PO 08/11/19 18:00 08/14/19 17:10 Nicotine (Nicoderm Cq 21mg) 1 patch DAILY TD 08/11/19 09:00 08/13/19 08:20 Nitrofurantoin Monoh/Nitrofur Macro (Macrobid) 100 mg BID PO 08/12/19 09:00 08/17/19 09:00 08/14/19 20:23 Olanzapine (ZyPREXA ZYDIS) 10 mg Q4HP PRN PO ANXIETY/AGITATION 08/10/19 18:15 08/14/19 20:25 Paliperidone (Invega) 6 mg BID PO 08/11/19 09:00 08/14/19 14:45 DC 08/14/19 08:19 Pramipexole Dihydrochloride (Mirapex) 0.125 mg DAILY PO 08/11/19 09:00 08/13/19 10:07 DC 08/13/19 08:21 Trazodone HCl (Desyrel) 50 mg QHSP PRN PO INSOMNIA 08/10/19 18:15 08/14/19 20:24 Allergies Coded Allergies: Cola Drinks (Verified Allergy, Intermediate, CARRIES EPI-PEN, DARK COLA PRODUCTS, 05/16/07) Beet (Verified Allergy, Mild, 08/10/19) hives guaifenesin (Verified Adverse Reaction, Mild, 08/10/19) makes her "loopy" TERESA RAIN DO Aug 15, 2019 08:08
[2019-08-15 08:32] LABS: BASO % 0.4 % (0.0-1.0); EOS # 0.1 10^3/uL (0.0-0.5); EOS % 0.7 % (0.0-3.0); HEMATOCRIT 40.1 % (36.0-47.0); HEMOGLOBIN 13.3 g/dl (12.0-15.5); LYMPH # 2.4 10^3/uL (1.5-5.0); LYMPH % 29.2 % (24.0-44.0); MEAN CORPUSCULAR HEMOGLOBIN 30.4 pg (27.0-33.0); MEAN CORPUSCULAR HGB CONC 33.2 g/dl (32.0-36.5); MEAN CORPUSCULAR VOLUME 91.8 fl (80.0-96.0); MONO # 0.7 10^3/uL (0.0-0.8); NEUTROPHILS # 4.9 10^3/uL (1.5-8.5); PLATELET COUNT, AUTOMATED 262 10^3/uL (150-450); RED BLOOD COUNT 4.37 10^6/uL (4.00-5.40); WHITE BLOOD COUNT 8.2 10^3/uL (4.0-10.0)
[2019-08-15] MEDS: NICOTINE 21MG/24HR 1 EA TRANSDERMAL TD SCH (09:00)
[2019-08-15] MEDS: LOSARTAN 25 MG TAB PO SCH (09:45)
[2019-08-15] MEDS: metFORMIN (GLUCOPHAGE) 1000 MG TABLET PO SCH ×2 (09:45→16:54)
[2019-08-15] MEDS: DIVALPROEX 250 MG TAB PO SCH ×2 (09:45→20:22)
[2019-08-15] MEDS: GABAPENTIN 100 MG CAP PO SCH ×3 (09:45→20:22)
[2019-08-15] MEDS: NITROFURANTOIN (MACROBID) 100 MG CAP PO SCH ×2 (09:45→20:21)
[2019-08-15 17:23] VITALS: BP 125/67
[2019-08-15] MEDS: cloZAPine 25 MG TAB (S0136) PO SCH (20:22)
[2019-08-15] MEDS: CETIRIZINE (ZyrTEC) 10 MG TAB PO SCH (20:22)
[2019-08-15] MEDS: traZODone 50 MG TAB PO PRN (20:26)
[2019-08-16 06:00] VITALS: BP 126/69
--- NOTE | 2019-08-16 08:20 | MHIPNPDOC ---
[facility] Progress Note Progress Note Inpatient Progress Note Michelle Robb MRN: N/A Date of : N/A Date of Service: 08/16/2019 History of Present Illness The patient, a 49-year-old woman with a history of intellectual disabilities and schizophrenia presents paranoid and reportedly psychotic, gravely disabled. She is admitted in order to treat her psychosis. She's had multiple admissions in the past. Interval History Psychiatric symptoms today: Affective: None noted. Psychotic: The patient still reports significant psychotic symptoms, paranoia and fear of people "trying to get her." She is always disorganized and tangential. Anxiety: related to paranoia and delusions. Misc: None noted at this time. Group Attendance: Attends groups fairly frequently. Medication Side effects: See ROS below Behavioral problems/significant events overnight: No significant events overnight. Staff Report: Patient is significantly impaired by delusions and paranoia, unable to attend to her own needs. Review Of Systems Unable to obtain due to patient's mental status. Psychotherapy None on this visit. Vital Signs Reviewed. Mental Status Examination General: Fair hygiene Speech: Pressured Thought processes: Tangential MSK: Smooth and coordinated gait, no signs of tremors or involuntary orofacial movements Thought content: Bizarre and paranoid Abstract reasoning, and computation: Impaired Description of associations: Impaired Description of abnormal or psychotic thoughts: Significant paranoid ideation about others trying to get her Judgment: Impaired Insight: Impaired Orientation: Alert and orientated 3 Cognition: Some slowing, possibly consistent with low baseline IQ Recent and remote memory: Grossly intact Attention span and concentration: Impaired secondary to thought process Fund of knowledge: Unable to determine at this time Mood: "scared" Affect: Anxious with a constricted range Diagnoses Unspecified psychotic disorder. Intellectual disabilities, moderate to severe. Assessment and Plan Unspecified psychotic disorder: Cut Clozaril to 12.5 mg nightly due to reported sedation. Cut Depakote to 500 mg BID. Intellectual disabilities: IQ testing has been already done indicating moderate to severe difficulties connected with OPWDD and support services, appears patient has difficulty with compliance. Disposition The patient will need a further inpatient admission in order to treat her significantly impairing psychosis and paranoia and to further ascertain what her baseline is. Time Spent 15 minutes. Vital Signs Vital Signs Date Time Temp Pulse Resp B/P (MAP) Pulse Ox O2 Delivery O2 Flow Rate FiO2 08/16/19 06:00 97.5 82 14 126/69 (88) 08/13/19 06:50 Room Air 08/10/19 13:54 98 Laboratory Data 24H Labs Laboratory Tests 2 08/15/19 16:53: Bedside Glucose (Misc Panel) 126H 08/16/19 05:49: Bedside Glucose (Misc Panel) 101 Current Medications Current Medications Medications (Trade) Dose Ordered Sig/Breezy Route PRN Reason Start Time Stop Time Status Last Admin Dose Admin Acetaminophen (Tylenol Tab) 650 mg Q6HP PRN PO HEADACHE or DISCOMFORT 08/10/19 18:15 08/13/19 20:18 Al Hydrox/Mg Hydrox/Simethicone (Mylanta) 30 ml Q4HP PRN PO HEARTBURN/INDIGESTION 08/10/19 18:15 08/15/19 14:59 Cetirizine HCl (ZyrTEC) 10 mg QHS PO 08/11/19 21:00 08/15/19 20:22 Clozapine (Clozaril) 25 mg QHS PO 08/14/19 21:00 08/15/19 20:22 Divalproex Sodium (Depakote) 750 mg BID PO 08/11/19 09:00 08/15/19 20:22 Gabapentin (Neurontin) 200 mg TID PO 08/11/19 16:00 08/15/19 20:22 Home Med (Med Rec Complete!) ASDIRECTED XX 08/10/19 19:15 08/10/19 19:17 DC Ibuprofen (Advil) 600 mg Q8HP PRN PO severe pain 08/11/19 14:30 08/12/19 20:27 Lorazepam (Ativan) 2 mg Q4HP PRN PO ANXIETY/AGITATION 08/10/19 18:15 08/14/19 20:23 Losartan Potassium (Cozaar) 25 mg DAILY PO 08/11/19 09:00 08/15/19 09:45 Magnesium Hydroxide (Milk Of Magnesia) 30 ml DAILYPRN PRN PO CONSTIPATION 08/10/19 18:15 08/14/19 01:06 Metformin HCl (Glucophage) 1,000 mg BIDWM PO 08/11/19 18:00 08/15/19 16:54 Nicotine (Nicoderm Cq 21mg) 1 patch DAILY TD 08/11/19 09:00 08/13/19 08:20 Nitrofurantoin Monoh/Nitrofur Macro (Macrobid) 100 mg BID PO 08/12/19 09:00 08/17/19 09:00 08/15/19 20:21 Olanzapine (ZyPREXA ZYDIS) 10 mg Q4HP PRN PO ANXIETY/AGITATION 08/10/19 18:15 08/14/19 20:25 Paliperidone (Invega) 6 mg BID PO 08/11/19 09:00 08/14/19 14:45 DC 08/14/19 08:19 Pramipexole Dihydrochloride (Mirapex) 0.125 mg DAILY PO 08/11/19 09:00 08/13/19 10:07 DC 08/13/19 08:21 Trazodone HCl (Desyrel) 50 mg QHSP PRN PO INSOMNIA 08/10/19 18:15 08/15/19 20:26 Allergies Coded Allergies: Cola Drinks (Verified Allergy, Intermediate, CARRIES EPI-PEN, DARK COLA PRODUCTS, 05/16/07) Beet (Verified Allergy, Mild, 08/10/19) hives guaifenesin (Verified Adverse Reaction, Mild, 08/10/19) makes her "loopy" TERESA RAIN DO Aug 16, 2019 08:20
[2019-08-16] MEDS: NICOTINE 21MG/24HR 1 EA TRANSDERMAL TD SCH (08:38)
[2019-08-16] MEDS: GABAPENTIN 100 MG CAP PO SCH ×3 (08:39→20:04)
[2019-08-16] MEDS: NITROFURANTOIN (MACROBID) 100 MG CAP PO SCH (08:39)
[2019-08-16] MEDS: metFORMIN (GLUCOPHAGE) 1000 MG TABLET PO SCH ×2 (08:40→18:16)
[2019-08-16] MEDS: LOSARTAN 25 MG TAB PO SCH (08:40)
[2019-08-16] MEDS: DIVALPROEX 250 MG TAB PO SCH (08:41)
[2019-08-16 15:46] VITALS: BP 113/62
[2019-08-16] MEDS: PILL CUTTER 1 EACH XX PRN (20:04)
[2019-08-16] MEDS: DIVALPROEX 500 MG TAB PO SCH (20:04)
[2019-08-16] MEDS: cloZAPine 25 MG TAB (S0136) PO SCH (20:04)
[2019-08-16] MEDS: CETIRIZINE (ZyrTEC) 10 MG TAB PO SCH (20:05)
[2019-08-17 06:18] VITALS: BP 138/87
[2019-08-17] MEDS: NICOTINE 21MG/24HR 1 EA TRANSDERMAL TD SCH (08:34)
[2019-08-17] MEDS: DIVALPROEX 500 MG TAB PO SCH ×2 (08:34→20:26)
[2019-08-17] MEDS: GABAPENTIN 100 MG CAP PO SCH ×3 (08:34→20:26)
[2019-08-17] MEDS: metFORMIN (GLUCOPHAGE) 1000 MG TABLET PO SCH ×2 (08:34→17:32)
[2019-08-17] MEDS: LOSARTAN 25 MG TAB PO SCH (08:36)
--- NOTE | 2019-08-17 13:04 | MHIPNPDOC ---
[facility] Progress Note Progress Note Inpatient Progress Note Michelle Robb MRN: N/A Date of : N/A Date of Service: 08/17/2019 History of Present Illness The patient, a 49-year-old woman with a history of intellectual disabilities and schizophrenia presents paranoid and reportedly psychotic, gravely disabled. She is admitted in order to treat her psychosis. She's had multiple admissions in the past. Interval History Psychiatric symptoms today: Affective: Patient denies any depression symptoms today. Psychotic: Patient reports that she is feeling "much better," does not have significant disorganization today with improved ability to focus her thought processes. Anxiety: Improved, less paranoia, not worrying about "others." Misc: None noted. Group Attendance: Attends everyday groups. Medication Side effects: See ROS below Behavioral problems/significant events overnight: None noted. Staff Report: Patient has been improved and is approaching her baseline. Review Of Systems Cardiovascular: Denies Chest pain or palpations GI: Report some constipation, still can pass gas. Denies nausea or vomiting or abdominal pain. Respiratory: Denies shortness of breath or cough Neuro: Denies dizziness, tremors Derm: Denies any rashes or pruritus : Denies any dysuria or urinary problems MSK: Denies any muscle tightness or stiffness Psychotherapy None on this visit. Vital Signs Reviewed. Mental Status Examination General: Fair hygiene Speech: Improved Thought processes: Improved MSK: Smooth and coordinated gait, no signs of tremors or involuntary orofacial movements Thought content: No paranoid ideation found Abstract reasoning, and computation: Improved Description of associations: Improved Description of abnormal or psychotic thoughts: Denies any suicidal or homicidal ideation. Denies auditory or visual hallucinations Judgment: Improved Insight: Improved Orientation: Alert and orientated 3 Cognition: Some slowing, possibly consistent with low baseline IQ Recent and remote memory: Grossly intact Attention span and concentration: Improved Fund of knowledge: Unable to determine at this time Mood: "Okay" Affect: Euthymic with full range Diagnoses Unspecified psychotic disorder. Intellectual disabilities, moderate to severe. Assessment and Plan Unspecified psychotic disorder: Continue Clozaril 12.5 mg nightly, starting Senna in order to antagonize constipation, Depakote continued at 500 mg BID. Intellectual disabilities: IQ testing has been already done indicating moderate to severe difficulties connected with [facility] and support services, appears patient has difficulty with compliance. Disposition The patient is improving, will be considered for discharge on Tuesday if improvement is continued. Time Spent 15 minutes. Tuesday Vital Signs Vital Signs Date Time Temp Pulse Resp B/P (MAP) Pulse Ox O2 Delivery O2 Flow Rate FiO2 08/17/19 08:36 126/70 08/17/19 06:18 97.4 78 16 08/13/19 06:50 Room Air Laboratory Data 24H Labs Laboratory Tests 2 08/16/19 17:15: Bedside Glucose (Misc Panel) 122H 08/17/19 05:34: Bedside Glucose (Misc Panel) 88 08/17/19 12:16: Bedside Glucose (Misc Panel) 92 Current Medications Current Medications Medications (Trade) Dose Ordered Sig/Breezy Route PRN Reason Start Time Stop Time Status Last Admin Dose Admin Acetaminophen (Tylenol Tab) 650 mg Q6HP PRN PO HEADACHE or DISCOMFORT 08/10/19 18:15 08/13/19 20:18 Al Hydrox/Mg Hydrox/Simethicone (Mylanta) 30 ml Q4HP PRN PO HEARTBURN/INDIGESTION 08/10/19 18:15 08/15/19 14:59 Cetirizine HCl (ZyrTEC) 10 mg QHS PO 08/11/19 21:00 08/16/19 20:05 Clozapine (Clozaril) 12.5 mg QHS PO 08/16/19 21:00 08/16/19 20:04 Clozapine (Clozaril) 25 mg QHS PO 08/14/19 21:00 08/16/19 09:43 DC 08/15/19 20:22 Divalproex Sodium (Depakote) 500 mg BID PO 08/16/19 21:00 08/17/19 08:34 Divalproex Sodium (Depakote) 750 mg BID PO 08/11/19 09:00 08/16/19 09:15 DC 08/16/19 08:41 Gabapentin (Neurontin) 200 mg TID PO 08/11/19 16:00 08/17/19 08:34 Home Med (Med Rec Complete!) ASDIRECTED XX 08/10/19 19:15 08/10/19 19:17 DC Ibuprofen (Advil) 600 mg Q8HP PRN PO severe pain 08/11/19 14:30 08/12/19 20:27 Lorazepam (Ativan) 2 mg Q4HP PRN PO ANXIETY/AGITATION 08/10/19 18:15 08/16/19 09:15 DC 08/14/19 20:23 Losartan Potassium (Cozaar) 25 mg DAILY PO 08/11/19 09:00 08/17/19 08:36 Magnesium Hydroxide (Milk Of Magnesia) 30 ml DAILYPRN PRN PO CONSTIPATION 08/10/19 18:15 08/14/19 01:06 Metformin HCl (Glucophage) 1,000 mg BIDWM PO 08/11/19 18:00 08/17/19 08:34 Miscellaneous (Unresolved Clarification Entry) SEE LABEL COMMENTS DAILY XX 08/16/19 09:00 08/16/19 11:34 DC 08/16/19 09:00 Nicotine (Nicoderm Cq 21mg) 1 patch DAILY TD 08/11/19 09:00 08/16/19 08:38 Nitrofurantoin Monoh/Nitrofur Macro (Macrobid) 100 mg BID PO 08/12/19 09:00 08/16/19 11:34 DC 08/16/19 08:39 Olanzapine (ZyPREXA ZYDIS) 10 mg Q4HP PRN PO ANXIETY/AGITATION 08/10/19 18:15 08/14/19 20:25 Paliperidone (Invega) 6 mg BID PO 08/11/19 09:00 08/14/19 14:45 DC 08/14/19 08:19 Pramipexole Dihydrochloride (Mirapex) 0.125 mg DAILY PO 08/11/19 09:00 08/13/19 10:07 DC 08/13/19 08:21 Trazodone HCl (Desyrel) 50 mg QHSP PRN PO INSOMNIA 08/10/19 18:15 08/16/19 09:43 DC 08/15/19 20:26 Allergies Coded Allergies: Cola Drinks (Verified Allergy, Intermediate, CARRIES EPI-PEN, DARK COLA PRODUCTS, 05/16/07) Beet (Verified Allergy, Mild, 08/10/19) hives guaifenesin (Verified Adverse Reaction, Mild, 08/10/19) makes her "loopy" TERESA RAIN DO Aug 17, 2019 13:04
[2019-08-17 16:49] VITALS: BP 124/65
[2019-08-17] MEDS ORDERED: SENOKOT S TAB PO ONE (19:15)
[2019-08-17] MEDS: CETIRIZINE (ZyrTEC) 10 MG TAB PO SCH (20:26)
[2019-08-17] MEDS: PILL CUTTER 1 EACH XX PRN (20:26)
[2019-08-17] MEDS: cloZAPine 25 MG TAB (S0136) PO SCH (20:26)
[2019-08-18 06:00] VITALS: BP 115/58
[2019-08-18] MEDS ORDERED: SENOKOT S TAB PO PRN (06:00)
[2019-08-18] MEDS: metFORMIN (GLUCOPHAGE) 1000 MG TABLET PO SCH ×2 (08:33→17:37)
[2019-08-18] MEDS: GABAPENTIN 100 MG CAP PO SCH ×3 (08:33→20:11)
[2019-08-18] MEDS: NICOTINE 21MG/24HR 1 EA TRANSDERMAL TD SCH (08:33)
[2019-08-18] MEDS: DIVALPROEX 500 MG TAB PO SCH ×2 (08:33→20:11)
[2019-08-18] MEDS: LOSARTAN 25 MG TAB PO SCH (08:33)
[2019-08-18 16:14] VITALS: BP 123/60
[2019-08-18] MEDS: CETIRIZINE (ZyrTEC) 10 MG TAB PO SCH (20:11)
[2019-08-18] MEDS: PILL CUTTER 1 EACH XX PRN (20:11)
[2019-08-18] MEDS: cloZAPine 25 MG TAB (S0136) PO SCH (20:12)
[2019-08-19 06:19] VITALS: BP 116/55
[2019-08-19] MEDS: NICOTINE 21MG/24HR 1 EA TRANSDERMAL TD SCH (08:09)
[2019-08-19] MEDS: DIVALPROEX 500 MG TAB PO SCH ×2 (08:12→20:09)
[2019-08-19] MEDS: LOSARTAN 25 MG TAB PO SCH (08:13)
[2019-08-19] MEDS: metFORMIN (GLUCOPHAGE) 1000 MG TABLET PO SCH ×2 (08:13→17:03)
[2019-08-19] MEDS: GABAPENTIN 100 MG CAP PO SCH ×3 (08:14→20:10)
[2019-08-19 19:00] VITALS: BP 143/58
[2019-08-19] MEDS: CEPACOL LOZENGE PO PRN ×2 (19:52→23:26)
[2019-08-19] MEDS: cloZAPine 25 MG TAB (S0136) PO SCH (20:09)
[2019-08-19] MEDS: CETIRIZINE (ZyrTEC) 10 MG TAB PO SCH (20:09)
[2019-08-20] MEDS: CEPACOL LOZENGE PO PRN ×2 (04:47→10:08)
[2019-08-20 06:26] VITALS: BP 146/85
[2019-08-20] MEDS: metFORMIN (GLUCOPHAGE) 1000 MG TABLET PO SCH (07:44)
[2019-08-20 08:03] VITALS: BP 134/75
[2019-08-20] MEDS: LOSARTAN 25 MG TAB PO SCH (08:03)
[2019-08-20] MEDS: DIVALPROEX 500 MG TAB PO SCH (08:03)
[2019-08-20] MEDS: GABAPENTIN 100 MG CAP PO SCH (08:03)
[2019-08-20] MEDS: NICOTINE 21MG/24HR 1 EA TRANSDERMAL TD SCH (08:04)
[2019-08-20] MEDS ORDERED: SENN-52 PO (09:33)
[2019-08-20] MEDS ORDERED: DEPA1TAB3 PO (09:33)
[2019-08-20] MEDS ORDERED: NICO21PAT TD (09:33)
[2019-08-20] MEDS ORDERED: CLOZ25TA3 PO (09:33)
[2019-08-20] MEDS ORDERED: Lab XX (09:33)
[2019-08-20 10:12] LABS: BASO % 0.2 % (0.0-1.0); EOS % 0.1 % (0.0-3.0); HEMATOCRIT 39.6 % (36.0-47.0); HEMOGLOBIN 12.8 g/dl (12.0-15.5); LYMPH # 1.6 10^3/uL (1.5-5.0); MEAN CORPUSCULAR HEMOGLOBIN 29.5 pg (27.0-33.0); MEAN CORPUSCULAR HGB CONC 32.3 g/dl (32.0-36.5); MEAN CORPUSCULAR VOLUME 91.2 fl (80.0-96.0); MONO # 1.8 10^3/uL (0.0-0.8); MONO % 10.9 % (0.0-5.0); NEUTROPHILS # 12.6 10^3/uL (1.5-8.5); NEUTROPHILS % 78.2 % (36.0-66.0); PLATELET COUNT, AUTOMATED 221 10^3/uL (150-450); RED BLOOD COUNT 4.34 10^6/uL (4.00-5.40); WHITE BLOOD COUNT 16.1 10^3/uL (4.0-10.0)
--- NOTE | 2019-08-20 10:23 | MHDSPDOC ---
[facility] Discharge Summary Discharge Summary DATE OF ADMISSION: Aug 10, 2019 at 18:01 DATE OF DISCHARGE: 08/20/19 Discharge Michelle Robb MRN: N/A Date of : N/A Date of Service: 08/20/2019 Diagnoses Schizophrenia. History of Present Illness The patient, a 49-year-old woman with a history of intellectual disabilities and schizophrenia presents paranoid and reportedly psychotic, gravely disabled. She is admitted in order to treat her psychosis. She's had multiple admissions in the past. Consultants Involved Hospitalist/PCP screening Treatment and Progress On The Unit The patient was admitted into the inpatient mental health unit. She does have a history of intellectual problems; however, she does not at baseline have significant paranoia and tangentiality. The patient was noted to have this and was started on her home medications of risperidone. However, the patient did not respond to this and was still quite paranoid and disorganized. After examining this, she was started on Clozaril 25 mg nightly; however, she noted that it made her too sedated, it was pulled back to 12.5 mg daily where the patient did quite well. Her laboratory studies on August 15 were normal after being on the Clozaril. Her tangentiality and paranoid thoughts resolved where she began to engage, had normal conversations with little sign of limitation. On discharge, she had a second CBC drawn with a high leukocyte count; however, she had no signs or symptoms of reported infections and this was attributed to Clozaril- induced leukocytosis which is in the literature described as a generally benign phenomenon. She was given laboratory studies to be done over the next 4 weeks for her Clozaril where further determinations will be made whether she will be continued on the Clozaril if she demonstrates any unusual signs or symptoms. Her case therapist was educated on these. Discharge Assessment The patient is a 49-year-old woman with a history of intellectual disabilities and apparent schizophrenia presents psychotic. She is started on Clozaril of which she does quite well. On the day of discharge, she has a relatively normal mental status exam, has returned to her baseline, is cooperative, calm and engaged. She had been denying suicidal and homicidal ideation throughout the entirety of her stay and declines further voluntary admission and thus must be discharged in good rony. Mental Status Examination The patient was discharged before I could complete my final mental status exam; however, I did observe her walking around the unit where she appears to be doing quite well, talkative and engaged with others and she had been denying any concerning ideation to staff. Follow Up The social work team worked during the predischarge meeting in order to evaluate for further issues of lethality address them fully before discharge. They worked on safety planning with the patient's family members in order to ensure that the patient will have a safe and effective discharge. Time Spent The amount of time spent in the coordination of care for this patient was approximately 40 minutes. Tuesday Vital Signs/I&Os Vital Signs Date Time Temp Pulse Resp B/P (MAP) Pulse Ox O2 Delivery O2 Flow Rate FiO2 08/20/19 08:03 134/75 08/20/19 06:26 97.6 101 16 Laboratory Data Labs 24H Laboratory Tests 2 08/19/19 16:59: Bedside Glucose (Misc Panel) 124H 08/20/19 07:43: Bedside Glucose (Misc Panel) 140H 08/20/19 09:49: Immature Granulocyte % (Auto) 0.6, Neutrophils (%) (Auto) 78.2H, Lymphocytes (%) (Auto) 10.0L, Monocytes (%) (Auto) 10.9H, Eosinophils (%) (Auto) 0.1, Basophils (%) (Auto) 0.2, Neutrophils # (Auto) 12.6H, Lymphocytes # (Auto) 1.6, Monocytes # (Auto) 1.8H, Eosinophils # (Auto) 0.0, Basophils # (Auto) 0.0, Nucleated Red Blood Cells % (auto) 0.0 CBC/BMP Laboratory Tests 08/20/19 09:49 Medications Scheduled Cetirizine HCl (Cetirizine HCl) 10 Mg Tablet, 10 MG PO QHS, (Reported) PATIENT STATES THIS ALLERGY MEDICATION IS NOT WORKING FOR HER AND WAS INQUIRING ABOUT POSSIBLY SWITCHING TO SOMETHING DIFFERENT Clozapine (Clozapine) 25 Mg Tablet, 12.5 MG PO QHS for thoughts for 7 Days, #5 Divalproex Sodium (Depakote) 500 Mg Tablet.dr, 500 MG PO BID for mood for 7 Days, #14 Gabapentin (Gabapentin) 100 Mg Capsule, 200 MG PO TID, (Reported) Losartan Potassium (Losartan Potassium) 25 Mg Tablet, 25 MG PO DAILY, (Reported) Metformin HCl (Metformin HCl) 1,000 Mg Tablet, 1,000 MG PO BID, (Reported) Nicotine (Nicotine Patch) 21 Mg Patch.td24, 1 PATCH TD DAILY for tobacco for 30 Days, #30 Pantoprazole Sodium (Protonix) 40 Mg Granpkt.dr, 40 MG PO DAILY, (Reported) MIX WITH APPLE SAUCE Scheduled PRN Sennosides/Docusate Sodium (Senna Plus Tablet) 1 Each Tablet, 1 TAB PO BIDP PRN for CONSTIPATION for 30 Days, #30 Miscellaneous Medications [Lab] , 1 UNIT XX for Clozapine screening for 30 Days, #4 Standing lab order for CBC with differential for 4 weeks, with 1 per week Allergies Coded Allergies: Cola Drinks (Verified Allergy, Intermediate, CARRIES EPI-PEN, DARK COLA PRODUCTS, 05/16/07) Beet (Verified Allergy, Mild, 08/10/19) hives guaifenesin (Verified Adverse Reaction, Mild, 08/10/19) makes her "loopy" TERESA RAIN DO Aug 20, 2019 10:23
== END 2019-08-20 10:40 | disposition home or self-care (01) | DRG 885 ==
LOC: M ED 13:44 → M ED INP 18:01 → ENRESERV 19:43 → M PSY 21:17
PROVIDERS: ADMIT Psychiatry & Neurology Psychiatry; ATTEND Psychiatry & Neurology Addiction Medicine
DX: F20.0 Paranoid schizophrenia (principal); F79 Unspecified intellectual disabilities; E11.9 Type 2 diabetes mellitus without complications; I10 Essential (primary) hypertension; E78.00 Pure hypercholesterolemia, unspecified; K59.09 Other constipation; Z79.84 Long term (current) use of oral hypoglycemic drugs; Z88.8 Allergy status to other drugs, medicaments and biological substances; Z91.02 Food additives allergy status; Z91.018 Allergy to other foods; Z79.899 Other long term (current) drug therapy; F29 Unspecified psychosis not due to a substance or known physiological condition